=== PATIENT | female | born 1950 | race Caucasian/White ===

== ENCOUNTER 2018-05-29 19:59 | Emergency (ER) | payer OTHER, BC ==
[2018-05-29] MEDS: HYDROCODONE/APAP (5/325) TAB PO (21:28)
[2018-05-29 22:42] LABS: ADD MAN DIFF? NO
[2018-05-29 22:46] LABS: BASOPHILS % 0.2 % (0.0-2.0); EOSINOPHILS # 0.1 10^3/ul (0.0-0.5); HEMATOCRIT 35.1 % (37.0-47.0); HEMOGLOBIN 11.7 g/dl (12.0-16.0); LYMPHOCYTES # 1.4 10^3/ul (0.8-2.9); LYMPHOCYTES % 23.2 % (15.0-51.0); MEAN CORPUSCULAR HGB CONC 33.3 g/dl (32.0-37.0); MEAN CORPUSCULAR VOLUME 95.9 fl (82.0-101.0); MEAN PLATELET VOLUME 9.7 fl (7.4-10.4); MONOCYTE # 0.5 10^3/ul (0.3-0.9); MONOCYTES % 8.9 % (0.0-11.0); NEUTROPHILS % 66.4 % (39.0-77.0); PLATELET COUNT 171 10^3/UL (140-415); RED BLOOD COUNT 3.66 10^6/ul (4.20-5.40)
[2018-05-29 23:23] LABS: ALANINE AMINOTRANSFERASE 38 IU/L (13-69); ALBUMIN 4.1 g/dl (3.3-4.9); ALBUMIN/GLOBULIN RATIO 1.41; ALKALINE PHOSPHATASE 137 IU/L (42-121); ANION GAP 15 (8-16); ASPARTATE AMINO TRANSFERASE 37 IU/L (15-46); BLOOD UREA NITROGEN 23 mg/dl (7-20); CALCIUM 9.6 mg/dl (8.4-10.2); CARBON DIOXIDE 24 mmol/L (21-31); CHLORIDE 108 mmol/L (97-110); CREATININE 0.86 mg/dl (0.44-1.00); GLUCOSE 112 mg/dl (70-220); POTASSIUM 4.4 mmol/L (3.5-5.1); SODIUM 143 mmol/L (135-144)
[2018-05-29 23:39] LABS: ADD UMIC YES; UR ASCORBIC ACID NEGATIVE (NEGATIVE); UR BACTERIA FEW /HPF (NONE SEEN); UR BILIRUBIN (Dip) NEGATIVE (NEGATIVE); UR BLOOD (Dip) NEGATIVE (NEGATIVE); UR CALCIUM OXALATE CRYSTAL MANY /HPF (NONE SEEN); UR CLARITY CLOUDY (CLEAR); UR COLOR YELLOW (YELLOW); UR GLUCOSE (Dip) NEGATIVE (NEGATIVE); UR KETONES (Dip) NEGATIVE (NEGATIVE); UR LEUKOCYTE ESTERASE (Dip) 1+ Leu/ul (NEGATIVE); UR MUCUS FEW /HPF (NONE SEEN); UR NITRITE (Dip) NEGATIVE (NEGATIVE); UR RBC 7 /HPF (0-5); UR SPECIFIC GRAVITY (Dip) 1.031 (1.003-1.030); UR SQUAMOUS EPITHELIAL CELL MODERATE /HPF (FEW); UR TOTAL PROTEIN (Dip) NEGATIVE (NEGATIVE); UR UROBILINOGEN (Dip) 1+ mg/dL (NEGATIVE); UR WBC 19 /HPF (0-5)
[2018-05-30] MEDS: KETOROLAC 30 MG INJ IM
== END 2018-05-30 00:38 | disposition home or self-care (01) ==
LOC: FTE 05-30 00:38
DX: M24.551 Contracture, right hip (principal); N30.01 Acute cystitis with hematuria; R40.2412 Glasgow coma scale score 13-15, at arrival to emergency department; I10 Essential (primary) hypertension
CPT/HCPCS: 72170; 73502; 73510; 80053; 81001; 85025; 96372; 99284-25

== ENCOUNTER 2018-06-04 20:21 | Inpatient (IN) | payer OTHER ==
[2018-06-04] MEDS: HYDROCODONE/APAP (10/325) TAB PO (20:52)
[2018-06-04 21:27] LABS: ADD MAN DIFF? NO
[2018-06-04 21:29] LABS: WHITE BLOOD COUNT 6.4 10^3/ul (4.8-10.8)
[2018-06-04 21:29] LABS: BASOPHILS % 0.3 % (0.0-2.0); EOSINOPHILS # 0.1 10^3/ul (0.0-0.5); EOSINOPHILS % 1.7 % (0.0-7.0); HEMOGLOBIN 12.8 g/dl (12.0-16.0); LYMPHOCYTES # 1.7 10^3/ul (0.8-2.9); LYMPHOCYTES % 26.8 % (15.0-51.0); MEAN CORPUSCULAR HGB CONC 32.8 g/dl (32.0-37.0); MEAN CORPUSCULAR VOLUME 97.5 fl (82.0-101.0); MEAN PLATELET VOLUME 9.2 fl (7.4-10.4); MONOCYTE # 0.6 10^3/ul (0.3-0.9); MONOCYTES % 8.7 % (0.0-11.0); NEUTROPHILS % 62.2 % (39.0-77.0); PLATELET COUNT 193 10^3/UL (140-415); RED CELL DISTRIBUTION WIDTH 12.9 % (11.5-14.5)
[2018-06-04 21:52] LABS: ALANINE AMINOTRANSFERASE 36 IU/L (13-69); ALBUMIN 4.2 g/dl (3.3-4.9); ALKALINE PHOSPHATASE 169 IU/L (42-121); ANION GAP 14 (8-16); ASPARTATE AMINO TRANSFERASE 38 IU/L (15-46); BILIRUBIN,INDIRECT 0.7 mg/dl (0-1.1); BILIRUBIN,TOTAL 0.7 mg/dl (0.2-1.3); BLOOD UREA NITROGEN 26 mg/dl (7-20); CALCIUM 9.5 mg/dl (8.4-10.2); CARBON DIOXIDE 24 mmol/L (21-31); CHLORIDE 111 mmol/L (97-110); CREATININE 0.88 mg/dl (0.44-1.00); GLUCOSE 98 mg/dl (70-220); POTASSIUM 4.2 mmol/L (3.5-5.1); SODIUM 145 mmol/L (135-144); TOTAL PROTEIN 7.7 g/dl (6.1-8.1)
[2018-06-04 22:35] LABS: ERYTHROCYTE SEDIMENTATION RATE 30 mm/Hr (0-30)
[2018-06-04] MEDS: morphine 4 MG/ML VIAL IV (23:35)
[2018-06-04] MEDS: ONDANSETRON 4 MG INJ IV (23:35)
[2018-06-04] MEDS: SOD CHLORIDE 0.9% 1,000 ML IV (23:36)
[2018-06-05 00:26] LABS: INR 1.03; PROTIME 13.6 Sec (11.9-14.9); PT RATIO 1.1
[2018-06-05 00:27] LABS: PARTIAL THROMBOPLASTIN TIME 26.1 Sec (25.0-35.0)
[2018-06-05] MEDS: HYDROmorphONE 0.5 MG/0.5 ML SYG IV (00:38)
[2018-06-05 03:00] LABS: ADD UMIC YES; UR ASCORBIC ACID NEGATIVE (NEGATIVE); UR BILIRUBIN (Dip) 1+ mg/dL (NEGATIVE); UR BLOOD (Dip) 1+ mg/dL (NEGATIVE); UR CLARITY CLEAR (CLEAR); UR COLOR YELLOW (YELLOW); UR GLUCOSE (Dip) NEGATIVE (NEGATIVE); UR KETONES (Dip) NEGATIVE (NEGATIVE); UR LEUKOCYTE ESTERASE (Dip) NEGATIVE Leu/ul (NEGATIVE); UR NITRITE (Dip) NEGATIVE (NEGATIVE); UR RBC 7 /HPF (0-5); UR SPECIFIC GRAVITY (Dip) 1.034 (1.003-1.030); UR SQUAMOUS EPITHELIAL CELL FEW /HPF (FEW); UR TOTAL PROTEIN (Dip) NEGATIVE (NEGATIVE); UR UROBILINOGEN (Dip) 2+ mg/dL (NEGATIVE); UR WBC 0 /HPF (0-5)
[2018-06-05] MEDS ORDERED: ALBUTEROL/IPRATROPIUM (NEB) 3 ML AMP HHN (03:00)
[2018-06-05] MEDS ORDERED: ONDANSETRON 4 MG INJ IV (03:00)
[2018-06-05] MEDS ORDERED: NACL 0.9% 3 ML SYG IV (03:00)
[2018-06-05] MEDS ORDERED: ACETAMINOPHEN 325 MG TAB PO (03:00)
[2018-06-05 05:02] LABS: ADD MAN DIFF? NO
[2018-06-05 05:06] LABS: BASOPHILS % 0.3 % (0.0-2.0); EOSINOPHILS # 0.1 10^3/ul (0.0-0.5); EOSINOPHILS % 1.5 % (0.0-7.0); HEMATOCRIT 35.6 % (37.0-47.0); HEMOGLOBIN 11.7 g/dl (12.0-16.0); LYMPHOCYTES # 1.1 10^3/ul (0.8-2.9); LYMPHOCYTES % 18.9 % (15.0-51.0); MEAN CORPUSCULAR HEMOGLOBIN 32.1 pg (29.0-33.0); MEAN CORPUSCULAR HGB CONC 32.9 g/dl (32.0-37.0); MEAN CORPUSCULAR VOLUME 97.8 fl (82.0-101.0); MEAN PLATELET VOLUME 9.7 fl (7.4-10.4); MONOCYTE # 0.6 10^3/ul (0.3-0.9); MONOCYTES % 9.4 % (0.0-11.0); NEUTROPHIL # 4.1 10^3/ul (1.6-7.5); NEUTROPHILS % 69.6 % (39.0-77.0); PLATELET COUNT 155 10^3/UL (140-415); RED BLOOD COUNT 3.64 10^6/ul (4.20-5.40); RED CELL DISTRIBUTION WIDTH 13.1 % (11.5-14.5)
[2018-06-05 05:06] LABS: WHITE BLOOD COUNT 5.9 10^3/ul (4.8-10.8)
[2018-06-05 05:38] LABS: ALANINE AMINOTRANSFERASE 58 IU/L (13-69); ALBUMIN 3.7 g/dl (3.3-4.9); ALBUMIN/GLOBULIN RATIO 1.37; ALKALINE PHOSPHATASE 206 IU/L (42-121); ANION GAP 13 (8-16); ASPARTATE AMINO TRANSFERASE 111 IU/L (15-46); BILIRUBIN,INDIRECT 0.9 mg/dl (0-1.1); BILIRUBIN,TOTAL 0.9 mg/dl (0.2-1.3); BLOOD UREA NITROGEN 26 mg/dl (7-20); CALCIUM 9.3 mg/dl (8.4-10.2); CARBON DIOXIDE 27 mmol/L (21-31); CHLORIDE 108 mmol/L (97-110); CREATININE 0.82 mg/dl (0.44-1.00); GLUCOSE 126 mg/dl (70-220); POTASSIUM 4.1 mmol/L (3.5-5.1); SODIUM 144 mmol/L (135-144); TOTAL PROTEIN 6.4 g/dl (6.1-8.1)
[2018-06-05] MEDS: HYDROCODONE/APAP (5/325) TAB PO (06:10)
[2018-06-05] MEDS ORDERED: SUGAMMADEX SODIUM 200 MG/2 ML VIAL IV (07:36)
[2018-06-05] MEDS ORDERED: LABETALOL HCL 20MG INJ (07:36)
[2018-06-05] MEDS ORDERED: ONDANSETRON 4 MG INJ (07:36)
[2018-06-05] MEDS ORDERED: CEFAZOLIN 1 GM INJ (07:36)
[2018-06-05] MEDS ORDERED: ACETAMINOPHEN 1000MG/100ML IV 100 ML (07:36)
[2018-06-05] MEDS ORDERED: PROPOFOL 20 ML (07:36)
[2018-06-05] MEDS ORDERED: DEXAMETHASONE 4 MG/ML 1 ML INJ (07:36)
[2018-06-05] MEDS ORDERED: ROCURONIUM 50 MG INJ (07:36)
[2018-06-05] MEDS ORDERED: PHENYLephrine (100 MCG/ML) 5ML SYG (07:36)
[2018-06-05] MEDS ORDERED: morphine 10 MG INJ (07:36)
[2018-06-05] MEDS: HEPARIN 5,000 UNIT/0.5 ML VIAL SC ×2 (08:40→21:43)
[2018-06-05] MEDS: morphine 2 MG INJ IV ×2 (11:19→15:58)
[2018-06-05] MEDS ORDERED: HYDROCODONE/APAP (5/325) TAB PO ×2 (13:00)
[2018-06-05] MEDS: PANTOPRAZOLE (EC) 40 MG TAB PO (19:04)
[2018-06-05] MEDS: morphine LIQ (10 MG/5 ML) CUP PO ×2 (19:47→23:02)
[2018-06-05] MEDS ORDERED: VITAMIN A & D 5 GM OINT PACKET TOP (21:45)
[2018-06-05] MEDS: SOD CHLORIDE 0.9% 1,000 ML IV ×2 (22:30→22:45)
[2018-06-06] MEDS: CALCIUM CARBONATE 500 MG CHEW TAB PO (02:00)
[2018-06-06] MEDS: morphine LIQ (10 MG/5 ML) CUP PO ×5 (02:37→22:59)
[2018-06-06] MEDS: PANTOPRAZOLE (EC) 40 MG TAB PO (05:19)
[2018-06-06] MEDS: SOD CHLORIDE 0.9% 1,000 ML IV (05:23)
[2018-06-06 05:46] LABS: ADD MAN DIFF? NO
[2018-06-06 06:06] LABS: BASOPHILS % 0.5 % (0.0-2.0); EOSINOPHILS # 0.1 10^3/ul (0.0-0.5); EOSINOPHILS % 2.1 % (0.0-7.0); HEMATOCRIT 35.1 % (37.0-47.0); HEMOGLOBIN 11.5 g/dl (12.0-16.0); LYMPHOCYTES # 1.1 10^3/ul (0.8-2.9); LYMPHOCYTES % 25.2 % (15.0-51.0); MEAN CORPUSCULAR HEMOGLOBIN 31.9 pg (29.0-33.0); MEAN CORPUSCULAR HGB CONC 32.8 g/dl (32.0-37.0); MEAN CORPUSCULAR VOLUME 97.5 fl (82.0-101.0); MONOCYTE # 0.4 10^3/ul (0.3-0.9); MONOCYTES % 8.6 % (0.0-11.0); NEUTROPHIL # 2.7 10^3/ul (1.6-7.5); NEUTROPHILS % 63.4 % (39.0-77.0); PLATELET COUNT 152 10^3/UL (140-415); RED CELL DISTRIBUTION WIDTH 13.1 % (11.5-14.5)
[2018-06-06 06:06] LABS: WHITE BLOOD COUNT 4.3 10^3/ul (4.8-10.8)
[2018-06-06] MEDS: AL HYDROX/MG HYDROX/SIMETH 30 ML CUP PO (06:19)
[2018-06-06 06:50] LABS: ANION GAP 9 (8-16); BLOOD UREA NITROGEN 21 mg/dl (7-20); CALCIUM 8.9 mg/dl (8.4-10.2); CARBON DIOXIDE 24 mmol/L (21-31); CHLORIDE 114 mmol/L (97-110); CREATININE 0.91 mg/dl (0.44-1.00); GLUCOSE 97 mg/dl (70-220); MAGNESIUM 1.9 mg/dl (1.7-2.5); POTASSIUM 4.4 mmol/L (3.5-5.1); SODIUM 143 mmol/L (135-144)
[2018-06-06] MEDS: HEPARIN 5,000 UNIT/0.5 ML VIAL SC ×2 (09:33→21:50)
[2018-06-07] MEDS: HALOPERIDOL 5 MG INJ IM (01:00)
[2018-06-07] MEDS: SOD CHLORIDE 0.9% 1,000 ML IV ×2 (05:07→18:50)
[2018-06-07] MEDS: morphine 2 MG INJ IV ×3 (05:07→23:07)
[2018-06-07] MEDS: PANTOPRAZOLE (EC) 40 MG TAB PO (05:56)
[2018-06-07] MEDS: HEPARIN 5,000 UNIT/0.5 ML VIAL SC (09:00)
[2018-06-07] MEDS ORDERED: MEPERIDINE 25 MG INJ IV (13:30)
[2018-06-07] MEDS ORDERED: MIDAZOLAM 1 MG/ML 2 ML INJ IV (13:30)
[2018-06-07] MEDS ORDERED: HYDROmorphONE 1 MG/5 ML IV SYRINGE IV ×3 (13:30)
[2018-06-07] MEDS ORDERED: FENTAnyl 50 MCG/ML VIAL IV ×2 (13:30)
[2018-06-07] MEDS ORDERED: ONDANSETRON 4 MG INJ IV (13:30)
[2018-06-07] MEDS ORDERED: DIPHENHYDRAMINE 50 MG INJ IV (13:30)
[2018-06-07] MEDS ORDERED: LABETALOL HCL 20MG INJ IV (13:30)
[2018-06-07] MEDS ORDERED: OXYCODONE/ACETAMINOPHEN (5/325) TAB PO ×2 (13:30)
[2018-06-07] MEDS ORDERED: METOCLOPRAMIDE 10 MG INJ IV (13:30)
[2018-06-07] MEDS ORDERED: hydrALAzine 20 MG INJ IV (13:30)
[2018-06-07] MEDS ORDERED: EPHEDrine SULFATE 50 MG/5 ML SYG IV (13:30)
[2018-06-07] MEDS ORDERED: ALBUTEROL 0.083% (NEB) 2.5 MG/3 ML AMP HHN (13:30)
[2018-06-07] MEDS: POLYMYXIN/BACITRACIN 1L IRRIG IRR ×2 (16:20)
[2018-06-07] MEDS: FENTAnyl 50 MCG/ML VIAL IV ×2 (16:52→16:59)
[2018-06-07] MEDS: KETOROLAC 30 MG INJ IV (16:53)
[2018-06-07] MEDS: MIDAZOLAM 1 MG/ML 2 ML INJ IV (16:53)
[2018-06-07] MEDS ORDERED: CEFAZOLIN 1 GM/50 ML (PMX) 50 ML IVPB (17:00)
[2018-06-07 17:24] LABS: ADD MAN DIFF? NO
[2018-06-07 17:25] LABS: BASOPHILS % 0.2 % (0.0-2.0); EOSINOPHILS % 0.3 % (0.0-7.0); HEMATOCRIT 38.8 % (37.0-47.0); HEMOGLOBIN 12.7 g/dl (12.0-16.0); LYMPHOCYTES # 0.9 10^3/ul (0.8-2.9); LYMPHOCYTES % 7.7 % (15.0-51.0); MEAN CORPUSCULAR HEMOGLOBIN 32.2 pg (29.0-33.0); MEAN CORPUSCULAR HGB CONC 32.7 g/dl (32.0-37.0); MEAN CORPUSCULAR VOLUME 98.5 fl (82.0-101.0); MEAN PLATELET VOLUME 9.4 fl (7.4-10.4); MONOCYTE # 0.4 10^3/ul (0.3-0.9); MONOCYTES % 3.7 % (0.0-11.0); NEUTROPHIL # 9.8 10^3/ul (1.6-7.5); NEUTROPHILS % 87.7 % (39.0-77.0); PLATELET COUNT 180 10^3/UL (140-415); RED BLOOD COUNT 3.94 10^6/ul (4.20-5.40)
[2018-06-07 17:25] LABS: WHITE BLOOD COUNT 11.2 10^3/ul (4.8-10.8)
[2018-06-07 17:54] LABS: ANION GAP 11 (8-16); BLOOD UREA NITROGEN 15 mg/dl (7-20); CARBON DIOXIDE 21 mmol/L (21-31); CHLORIDE 112 mmol/L (97-110); CREATININE 0.77 mg/dl (0.44-1.00); GLUCOSE 108 mg/dl (70-220); POTASSIUM 4.3 mmol/L (3.5-5.1); SODIUM 140 mmol/L (135-144)
[2018-06-07] MEDS: CEFAZOLIN 1 GM/50 ML (PMX) 50 ML IVPB (21:57)
[2018-06-08] MEDS: morphine 2 MG INJ IV ×6 (02:48→22:06)
[2018-06-08] MEDS: SOD CHLORIDE 0.9% 1,000 ML IV ×3 (05:10→23:27)
[2018-06-08] MEDS: CEFAZOLIN 1 GM/50 ML (PMX) 50 ML IVPB ×2 (05:43→13:05)
[2018-06-08] MEDS: PANTOPRAZOLE (EC) 40 MG TAB PO (05:44)
[2018-06-08 06:10] LABS: ADD MAN DIFF? NO
[2018-06-08 06:21] LABS: WHITE BLOOD COUNT 8.8 10^3/ul (4.8-10.8)
[2018-06-08 06:21] LABS: BASOPHILS % 0.1 % (0.0-2.0); HEMATOCRIT 30.2 % (37.0-47.0); HEMOGLOBIN 9.6 g/dl (12.0-16.0); LYMPHOCYTES # 0.6 10^3/ul (0.8-2.9); LYMPHOCYTES % 6.9 % (15.0-51.0); MEAN CORPUSCULAR HEMOGLOBIN 31.2 pg (29.0-33.0); MEAN CORPUSCULAR HGB CONC 31.8 g/dl (32.0-37.0); MEAN CORPUSCULAR VOLUME 98.1 fl (82.0-101.0); MEAN PLATELET VOLUME 10.2 fl (7.4-10.4); MONOCYTE # 0.9 10^3/ul (0.3-0.9); MONOCYTES % 9.7 % (0.0-11.0); NEUTROPHIL # 7.3 10^3/ul (1.6-7.5); PLATELET COUNT 168 10^3/UL (140-415); RED BLOOD COUNT 3.08 10^6/ul (4.20-5.40); RED CELL DISTRIBUTION WIDTH 13.2 % (11.5-14.5)
[2018-06-08 07:07] LABS: ANION GAP 14 (8-16); BLOOD UREA NITROGEN 19 mg/dl (7-20); CALCIUM 8.4 mg/dl (8.4-10.2); CARBON DIOXIDE 22 mmol/L (21-31); CHLORIDE 110 mmol/L (97-110); CREATININE 0.78 mg/dl (0.44-1.00); GLUCOSE 131 mg/dl (70-220); POTASSIUM 4.2 mmol/L (3.5-5.1); SODIUM 142 mmol/L (135-144)
[2018-06-08] MEDS: HYDROCODONE/APAP (5/325) TAB PO ×2 (09:14→20:52)
[2018-06-08] MEDS: ENOXAPARIN 40 MG/0.4 ML SYG SC (09:21)
[2018-06-08] MEDS: LORAZEPAM 2 MG INJ IV (15:06)
[2018-06-09] MEDS: morphine 2 MG INJ IV ×4 (03:19→18:26)
[2018-06-09 05:47] LABS: ADD MAN DIFF? NO
[2018-06-09] MEDS: HYDROCODONE/APAP (5/325) TAB PO ×3 (05:52→21:04)
[2018-06-09 05:53] LABS: BASOPHILS % 0.3 % (0.0-2.0); EOSINOPHILS # 0.1 10^3/ul (0.0-0.5); EOSINOPHILS % 1.6 % (0.0-7.0); HEMATOCRIT 26.6 % (37.0-47.0); HEMOGLOBIN 8.6 g/dl (12.0-16.0); LYMPHOCYTES # 0.9 10^3/ul (0.8-2.9); LYMPHOCYTES % 11.3 % (15.0-51.0); MEAN CORPUSCULAR HEMOGLOBIN 31.5 pg (29.0-33.0); MEAN CORPUSCULAR HGB CONC 32.3 g/dl (32.0-37.0); MEAN CORPUSCULAR VOLUME 97.4 fl (82.0-101.0); MEAN PLATELET VOLUME 9.8 fl (7.4-10.4); MONOCYTE # 1.1 10^3/ul (0.3-0.9); MONOCYTES % 13.2 % (0.0-11.0); NEUTROPHIL # 5.8 10^3/ul (1.6-7.5); NEUTROPHILS % 72.8 % (39.0-77.0); PLATELET COUNT 181 10^3/UL (140-415); RED BLOOD COUNT 2.73 10^6/ul (4.20-5.40); RED CELL DISTRIBUTION WIDTH 13.3 % (11.5-14.5)
[2018-06-09] MEDS: PANTOPRAZOLE (EC) 40 MG TAB PO (06:02)
[2018-06-09 06:14] LABS: BLOOD UREA NITROGEN 14 mg/dl (7-20); CALCIUM 8.4 mg/dl (8.4-10.2); CARBON DIOXIDE 22 mmol/L (21-31); CHLORIDE 110 mmol/L (97-110); CREATININE 0.71 mg/dl (0.44-1.00); GLUCOSE 107 mg/dl (70-220); SODIUM 138 mmol/L (135-144)
[2018-06-09 06:49] LABS: ANION GAP 10 (8-16); POTASSIUM 4.3 mmol/L (3.5-5.1)
[2018-06-09] MEDS: ENOXAPARIN 40 MG/0.4 ML SYG SC (09:11)
[2018-06-09] MEDS: SOD CHLORIDE 0.9% 1,000 ML IV (13:18)
== END 2018-06-09 21:10 | DRG 470 ==
LOC: FTE 20:21 → MS1 06-05 00:23
PROC: 0SRR0JZ Replacement of Right Hip Joint, Femoral Surface with Synthetic Substitute, Open Approach (ICD-10-PCS; principal; 2018-06-07 12:00)
DX: S72.011A Unspecified intracapsular fracture of right femur, initial encounter for closed fracture (principal); I10 Essential (primary) hypertension; E66.01 Morbid (severe) obesity due to excess calories; F17.210 Nicotine dependence, cigarettes, uncomplicated; Z98.84 Bariatric surgery status; W10.9XXA Fall (on) (from) unspecified stairs and steps, initial encounter; Y92.009 Unspecified place in unspecified non-institutional (private) residence as the place of occurrence of the external cause; Z68.37 Body mass index [BMI] 37.0-37.9, adult
CPT/HCPCS: 71045; 72192; 73500; 80048; 80053; 81001; 83735; 84100; 84484; 85025; 85610; 85651; 85730; 86140; 87086; 88304; 88311; 93005; 96374; 96375; 97110; 97163; 97530; 99285-25

== ENCOUNTER 2018-07-05 19:56 | Inpatient (IN) | payer OTHER ==
[2018-07-05] MEDS: morphine 4 MG/ML VIAL IV (20:31)
[2018-07-05] MEDS: SOD CHLORIDE 0.9% 500 ML IV (20:38)
[2018-07-05 20:40] LABS: ADD MAN DIFF? NO
[2018-07-05 20:42] LABS: WHITE BLOOD COUNT 7.8 10^3/ul (4.8-10.8)
[2018-07-05 20:42] LABS: BASOPHILS % 0.4 % (0.0-2.0); EOSINOPHILS # 0.5 10^3/ul (0.0-0.5); EOSINOPHILS % 6.8 % (0.0-7.0); HEMATOCRIT 32.3 % (37.0-47.0); HEMOGLOBIN 10.2 g/dl (12.0-16.0); LYMPHOCYTES # 1.6 10^3/ul (0.8-2.9); LYMPHOCYTES % 20.1 % (15.0-51.0); MEAN CORPUSCULAR HEMOGLOBIN 31.5 pg (29.0-33.0); MEAN CORPUSCULAR HGB CONC 31.6 g/dl (32.0-37.0); MEAN CORPUSCULAR VOLUME 99.7 fl (82.0-101.0); MEAN PLATELET VOLUME 9.3 fl (7.4-10.4); MONOCYTE # 0.7 10^3/ul (0.3-0.9); MONOCYTES % 9.3 % (0.0-11.0); NEUTROPHIL # 4.9 10^3/ul (1.6-7.5); NEUTROPHILS % 63.1 % (39.0-77.0); PLATELET COUNT 295 10^3/UL (140-415); RED BLOOD COUNT 3.24 10^6/ul (4.20-5.40); RED CELL DISTRIBUTION WIDTH 13.4 % (11.5-14.5)
[2018-07-05 20:59] LABS: ANION GAP 11 (8-16); BLOOD UREA NITROGEN 14 mg/dl (7-20); CALCIUM 9.7 mg/dl (8.4-10.2); CARBON DIOXIDE 27 mmol/L (21-31); CHLORIDE 105 mmol/L (97-110); CREATININE 0.67 mg/dl (0.44-1.00); GLUCOSE 104 mg/dl (70-220); POTASSIUM 4.1 mmol/L (3.5-5.1); SODIUM 139 mmol/L (135-144)
[2018-07-05] MEDS: HYDROmorphONE 2 MG/ML SYG IV (21:18)
[2018-07-06] MEDS: LACTATED RINGER'S 1,000 ML IV (00:09)
[2018-07-06] MEDS ORDERED: NACL 0.9% 3 ML SYG IV (01:30)
[2018-07-06] MEDS: SOD CHLORIDE 0.9% 1,000 ML IV (02:23)
[2018-07-06] MEDS: HYDROmorphONE 1 MG/ML SYG IV ×2 (02:26→10:27)
[2018-07-06 05:31] LABS: ADD MAN DIFF? NO
[2018-07-06 05:40] LABS: WHITE BLOOD COUNT 4.6 10^3/ul (4.8-10.8)
[2018-07-06 05:40] LABS: BASOPHILS % 0.4 % (0.0-2.0); EOSINOPHILS # 0.4 10^3/ul (0.0-0.5); EOSINOPHILS % 9.5 % (0.0-7.0); HEMATOCRIT 30.6 % (37.0-47.0); HEMOGLOBIN 9.5 g/dl (12.0-16.0); LYMPHOCYTES # 1.2 10^3/ul (0.8-2.9); LYMPHOCYTES % 25.5 % (15.0-51.0); MEAN CORPUSCULAR HEMOGLOBIN 31.7 pg (29.0-33.0); MEAN PLATELET VOLUME 9.2 fl (7.4-10.4); MONOCYTE # 0.5 10^3/ul (0.3-0.9); MONOCYTES % 9.7 % (0.0-11.0); NEUTROPHIL # 2.5 10^3/ul (1.6-7.5); NEUTROPHILS % 54.5 % (39.0-77.0); PLATELET COUNT 214 10^3/UL (140-415); RED CELL DISTRIBUTION WIDTH 13.5 % (11.5-14.5)
[2018-07-06 06:02] LABS: ALANINE AMINOTRANSFERASE 39 IU/L (13-69); ALBUMIN 2.9 g/dl (3.3-4.9); ALBUMIN/GLOBULIN RATIO 1.03; ALKALINE PHOSPHATASE 374 IU/L (42-121); ANION GAP 8 (8-16); ASPARTATE AMINO TRANSFERASE 79 IU/L (15-46); BILIRUBIN,INDIRECT 0.9 mg/dl (0-1.1); BILIRUBIN,TOTAL 0.9 mg/dl (0.2-1.3); BLOOD UREA NITROGEN 13 mg/dl (7-20); CALCIUM 8.7 mg/dl (8.4-10.2); CARBON DIOXIDE 28 mmol/L (21-31); CHLORIDE 108 mmol/L (97-110); CREATININE 0.61 mg/dl (0.44-1.00); GLUCOSE 94 mg/dl (70-220); POTASSIUM 3.5 mmol/L (3.5-5.1); SODIUM 140 mmol/L (135-144); TOTAL PROTEIN 5.7 g/dl (6.1-8.1)
[2018-07-06] MEDS: PANTOPRAZOLE (EC) 40 MG TAB PO (06:19)
[2018-07-06] MEDS: MULTIVITAMINS THERAPEUTIC TAB PO (08:51)
[2018-07-06] MEDS: SERTRALINE 50 MG TAB PO (08:51)
[2018-07-06] MEDS: DIPHENHYDRAMINE 50 MG INJ IV (12:07)
[2018-07-06] MEDS: DEXTROSE 5%-0.45% NACL 1,000 ML IV (13:26)
[2018-07-06] MEDS: morphine 2 MG INJ IV ×2 (15:51→20:14)
[2018-07-07] MEDS: DEXTROSE 5%-0.45% NACL 1,000 ML IV ×4 (00:19→22:52)
[2018-07-07] MEDS: morphine 2 MG INJ IV ×4 (00:21→14:39)
[2018-07-07 05:28] LABS: ADD MAN DIFF? NO
[2018-07-07 05:34] LABS: BASOPHILS % 0.1 % (0.0-2.0); EOSINOPHILS # 0.4 10^3/ul (0.0-0.5); EOSINOPHILS % 5.1 % (0.0-7.0); HEMATOCRIT 37.7 % (37.0-47.0); HEMOGLOBIN 11.6 g/dl (12.0-16.0); LYMPHOCYTES # 0.8 10^3/ul (0.8-2.9); LYMPHOCYTES % 9.7 % (15.0-51.0); MEAN CORPUSCULAR HEMOGLOBIN 31.3 pg (29.0-33.0); MEAN CORPUSCULAR HGB CONC 30.8 g/dl (32.0-37.0); MEAN CORPUSCULAR VOLUME 101.6 fl (82.0-101.0); MEAN PLATELET VOLUME 9.3 fl (7.4-10.4); MONOCYTE # 0.3 10^3/ul (0.3-0.9); NEUTROPHIL # 6.8 10^3/ul (1.6-7.5); NEUTROPHILS % 81.7 % (39.0-77.0); PLATELET COUNT 251 10^3/UL (140-415); RED BLOOD COUNT 3.71 10^6/ul (4.20-5.40); RED CELL DISTRIBUTION WIDTH 13.5 % (11.5-14.5)
[2018-07-07 05:34] LABS: WHITE BLOOD COUNT 8.4 10^3/ul (4.8-10.8)
[2018-07-07] MEDS: PANTOPRAZOLE (EC) 40 MG TAB PO (05:55)
[2018-07-07] MEDS: DIPHENHYDRAMINE 50 MG INJ IV ×3 (05:56→16:06)
[2018-07-07 06:01] LABS: ANION GAP 7 (8-16); BLOOD UREA NITROGEN 13 mg/dl (7-20); CALCIUM 7.9 mg/dl (8.4-10.2); CARBON DIOXIDE 24 mmol/L (21-31); CHLORIDE 109 mmol/L (97-110); CREATININE 0.68 mg/dl (0.44-1.00); GLUCOSE 113 mg/dl (70-220); MAGNESIUM 1.6 mg/dl (1.7-2.5); PHOSPHORUS 2.9 mg/dl (2.5-4.9); POTASSIUM 3.7 mmol/L (3.5-5.1); SODIUM 136 mmol/L (135-144)
[2018-07-07] MEDS: MULTIVITAMINS THERAPEUTIC TAB PO (09:40)
[2018-07-07] MEDS: ONDANSETRON 4 MG INJ IV (09:40)
[2018-07-07] MEDS: SERTRALINE 50 MG TAB PO (09:40)
[2018-07-07] MEDS: morphine LIQ (10 MG/5 ML) CUP PO (20:09)
[2018-07-08] MEDS: DIPHENHYDRAMINE 50 MG INJ IV ×4 (01:51→20:35)
[2018-07-08] MEDS: morphine LIQ (10 MG/5 ML) CUP PO ×4 (02:25→18:50)
[2018-07-08 05:52] LABS: ADD MAN DIFF? NO
[2018-07-08 06:01] LABS: WHITE BLOOD COUNT 10.8 10^3/ul (4.8-10.8)
[2018-07-08 06:01] LABS: BASOPHILS % 0.1 % (0.0-2.0); EOSINOPHILS # 0.9 10^3/ul (0.0-0.5); EOSINOPHILS % 8.7 % (0.0-7.0); HEMATOCRIT 34.5 % (37.0-47.0); HEMOGLOBIN 10.9 g/dl (12.0-16.0); LYMPHOCYTES # 0.7 10^3/ul (0.8-2.9); LYMPHOCYTES % 6.3 % (15.0-51.0); MEAN CORPUSCULAR HEMOGLOBIN 31.3 pg (29.0-33.0); MEAN CORPUSCULAR HGB CONC 31.6 g/dl (32.0-37.0); MEAN CORPUSCULAR VOLUME 99.1 fl (82.0-101.0); MEAN PLATELET VOLUME 9.7 fl (7.4-10.4); MONOCYTE # 0.6 10^3/ul (0.3-0.9); MONOCYTES % 5.1 % (0.0-11.0); NEUTROPHIL # 8.6 10^3/ul (1.6-7.5); NEUTROPHILS % 79.4 % (39.0-77.0); PLATELET COUNT 291 10^3/UL (140-415); RED BLOOD COUNT 3.48 10^6/ul (4.20-5.40); RED CELL DISTRIBUTION WIDTH 13.6 % (11.5-14.5)
[2018-07-08] MEDS: PANTOPRAZOLE (EC) 40 MG TAB PO (06:27)
[2018-07-08] MEDS: DEXTROSE 5%-0.45% NACL 1,000 ML IV ×4 (06:45→22:27)
[2018-07-08 07:00] LABS: ALBUMIN 2.3 g/dl (3.3-4.9); ANION GAP 8 (8-16); BLOOD UREA NITROGEN 11 mg/dl (7-20); CALCIUM 8.1 mg/dl (8.4-10.2); CARBON DIOXIDE 24 mmol/L (21-31); CHLORIDE 108 mmol/L (97-110); CREATININE 0.71 mg/dl (0.44-1.00); GLUCOSE 128 mg/dl (70-220); MAGNESIUM 1.5 mg/dl (1.7-2.5); PHOSPHORUS 2.7 mg/dl (2.5-4.9); POTASSIUM 3.4 mmol/L (3.5-5.1); SODIUM 137 mmol/L (135-144)
[2018-07-08] MEDS: MULTIVITAMINS THERAPEUTIC TAB PO (08:31)
[2018-07-08] MEDS: SERTRALINE 50 MG TAB PO (08:31)
[2018-07-08] MEDS: DOCUSATE SODIUM 100 MG CAP PO (08:35)
[2018-07-08] MEDS ORDERED: HYDROCODONE/APAP (5/325) TAB PO (12:00)
[2018-07-08] MEDS: HYDROCODONE/APAP (10/325) TAB PO ×2 (16:11→22:26)
[2018-07-09] MEDS: morphine LIQ (10 MG/5 ML) CUP PO (00:22)
[2018-07-09] MEDS: AL HYDROX/MG HYDROX/SIMETH 30 ML CUP PO (00:23)
[2018-07-09] MEDS ORDERED: DIPHENHYDRAMINE 50 MG INJ IM (00:30)
[2018-07-09] MEDS: PANTOPRAZOLE (EC) 40 MG TAB PO (04:56)
[2018-07-09] MEDS: HYDROCODONE/APAP (10/325) TAB PO ×3 (04:57→18:33)
[2018-07-09] MEDS: DIPHENHYDRAMINE 50 MG INJ IV ×4 (04:57→22:34)
[2018-07-09 05:27] LABS: ADD MAN DIFF? NO
[2018-07-09 05:35] LABS: BASOPHILS % 0.3 % (0.0-2.0); EOSINOPHILS # 0.9 10^3/ul (0.0-0.5); EOSINOPHILS % 15.3 % (0.0-7.0); HEMATOCRIT 34.1 % (37.0-47.0); HEMOGLOBIN 10.7 g/dl (12.0-16.0); LYMPHOCYTES # 0.9 10^3/ul (0.8-2.9); LYMPHOCYTES % 15.1 % (15.0-51.0); MEAN CORPUSCULAR HEMOGLOBIN 31.1 pg (29.0-33.0); MEAN CORPUSCULAR HGB CONC 31.4 g/dl (32.0-37.0); MEAN CORPUSCULAR VOLUME 99.1 fl (82.0-101.0); MEAN PLATELET VOLUME 9.4 fl (7.4-10.4); MONOCYTE # 0.5 10^3/ul (0.3-0.9); MONOCYTES % 7.9 % (0.0-11.0); NEUTROPHIL # 3.5 10^3/ul (1.6-7.5); NEUTROPHILS % 61.1 % (39.0-77.0); PLATELET COUNT 274 10^3/UL (140-415); RED BLOOD COUNT 3.44 10^6/ul (4.20-5.40); RED CELL DISTRIBUTION WIDTH 13.7 % (11.5-14.5)
[2018-07-09 05:35] LABS: WHITE BLOOD COUNT 5.8 10^3/ul (4.8-10.8)
[2018-07-09 06:18] LABS: ALBUMIN 2.6 g/dl (3.3-4.9); ANION GAP 10 (8-16); BLOOD UREA NITROGEN 8 mg/dl (7-20); CALCIUM 8.3 mg/dl (8.4-10.2); CARBON DIOXIDE 26 mmol/L (21-31); CHLORIDE 110 mmol/L (97-110); CREATININE 0.66 mg/dl (0.44-1.00); GLUCOSE 102 mg/dl (70-220); MAGNESIUM 1.6 mg/dl (1.7-2.5); PHOSPHORUS 3.1 mg/dl (2.5-4.9); POTASSIUM 3.5 mmol/L (3.5-5.1); SODIUM 142 mmol/L (135-144)
[2018-07-09] MEDS: SERTRALINE 50 MG TAB PO (08:51)
[2018-07-09] MEDS: MULTIVITAMINS THERAPEUTIC TAB PO (08:51)
[2018-07-09] MEDS: DEXTROSE 5%-0.45% NACL 1,000 ML IV ×4 (10:53→22:20)
[2018-07-10] MEDS: HYDROCODONE/APAP (10/325) TAB PO ×2 (00:36→06:20)
[2018-07-10] MEDS: morphine LIQ (10 MG/5 ML) CUP PO (03:34)
[2018-07-10 05:41] LABS: ADD MAN DIFF? NO
[2018-07-10 05:45] LABS: BASOPHILS % 0.3 % (0.0-2.0); EOSINOPHILS # 1.1 10^3/ul (0.0-0.5); EOSINOPHILS % 15.1 % (0.0-7.0); HEMATOCRIT 33.6 % (37.0-47.0); HEMOGLOBIN 10.5 g/dl (12.0-16.0); LYMPHOCYTES # 0.9 10^3/ul (0.8-2.9); LYMPHOCYTES % 12.6 % (15.0-51.0); MEAN CORPUSCULAR HGB CONC 31.3 g/dl (32.0-37.0); MEAN CORPUSCULAR VOLUME 99.1 fl (82.0-101.0); MEAN PLATELET VOLUME 9.4 fl (7.4-10.4); MONOCYTE # 0.4 10^3/ul (0.3-0.9); MONOCYTES % 5.7 % (0.0-11.0); NEUTROPHIL # 4.8 10^3/ul (1.6-7.5); NEUTROPHILS % 65.9 % (39.0-77.0); PLATELET COUNT 280 10^3/UL (140-415); RED BLOOD COUNT 3.39 10^6/ul (4.20-5.40)
[2018-07-10 05:45] LABS: WHITE BLOOD COUNT 7.3 10^3/ul (4.8-10.8)
[2018-07-10 06:04] LABS: ALBUMIN 2.4 g/dl (3.3-4.9); ANION GAP 9 (8-16); BLOOD UREA NITROGEN 8 mg/dl (7-20); CALCIUM 8.2 mg/dl (8.4-10.2); CARBON DIOXIDE 24 mmol/L (21-31); CHLORIDE 109 mmol/L (97-110); CREATININE 0.63 mg/dl (0.44-1.00); GLUCOSE 94 mg/dl (70-220); MAGNESIUM 1.5 mg/dl (1.7-2.5); POTASSIUM 3.5 mmol/L (3.5-5.1); SODIUM 138 mmol/L (135-144)
[2018-07-10] MEDS: DIPHENHYDRAMINE 50 MG INJ IV ×2 (06:19→16:57)
[2018-07-10] MEDS: PANTOPRAZOLE (EC) 40 MG TAB PO (06:19)
[2018-07-10] MEDS: DEXTROSE 5%-0.45% NACL 1,000 ML IV (06:20)
[2018-07-10] MEDS: BISACODYL (EC) 5 MG TAB PO (07:02)
[2018-07-10] MEDS ORDERED: VANCOMYCIN IV PER PHARMACY XX (08:30)
[2018-07-10] MEDS: PIPER-TAZO 3.375 GM IV (PMX) 100 ML IVPB (09:16)
[2018-07-10] MEDS: METHYLPREDNISOLONE 40 MG INJ IV (09:16)
[2018-07-10] MEDS: MULTIVITAMINS THERAPEUTIC TAB PO (09:17)
[2018-07-10] MEDS: SERTRALINE 50 MG TAB PO (09:17)
[2018-07-10] MEDS: VANCOMYCIN 2 GM in SOD CHLORIDE 0.9% 500 ML IVPB (10:28)
[2018-07-10] MEDS: OXYCODONE/ACETAMINOPHEN (10/325) TAB PO ×2 (10:33→14:43)
[2018-07-10] MEDS ORDERED: VITAMIN A & D 5 GM OINT PACKET TOP (15:23)
[2018-07-10] MEDS: CEFTRIAXONE 1 GM/50 ML (PMX) 50 ML IVPB (16:41)
[2018-07-10 16:58] LABS: LACTIC ACID 2.4 mmol/L (0.5-2.0)
[2018-07-10] MEDS: HYDROmorphONE 2 MG TAB PO (19:50)
[2018-07-10] MEDS: OXYCODONE/ACETAMINOPHEN (5/325) TAB PO (21:58)
[2018-07-10] MEDS: VANCOMYCIN 1 GM 250 ML IVPB (21:59)
[2018-07-10] MEDS ORDERED: VANCOMYCIN 750 MG in SOD CHLORIDE 0.9% 150 ML IVPB (22:00)
[2018-07-11] MEDS: DIPHENHYDRAMINE 50 MG INJ IV ×2 (01:15→21:58)
[2018-07-11] MEDS: OXYCODONE/ACETAMINOPHEN (5/325) TAB PO ×4 (02:08→21:58)
[2018-07-11 05:51] LABS: ADD MAN DIFF? NO
[2018-07-11 05:58] LABS: BASOPHILS % 0.1 % (0.0-2.0); EOSINOPHILS # 0.7 10^3/ul (0.0-0.5); EOSINOPHILS % 9.1 % (0.0-7.0); HEMATOCRIT 31.2 % (37.0-47.0); HEMOGLOBIN 9.9 g/dl (12.0-16.0); LYMPHOCYTES # 0.9 10^3/ul (0.8-2.9); LYMPHOCYTES % 12.6 % (15.0-51.0); MEAN CORPUSCULAR HEMOGLOBIN 31.6 pg (29.0-33.0); MEAN CORPUSCULAR HGB CONC 31.7 g/dl (32.0-37.0); MEAN CORPUSCULAR VOLUME 99.7 fl (82.0-101.0); MONOCYTE # 0.6 10^3/ul (0.3-0.9); NEUTROPHIL # 5.2 10^3/ul (1.6-7.5); NEUTROPHILS % 69.8 % (39.0-77.0); PLATELET COUNT 299 10^3/UL (140-415); RED BLOOD COUNT 3.13 10^6/ul (4.20-5.40); RED CELL DISTRIBUTION WIDTH 13.7 % (11.5-14.5)
[2018-07-11 05:58] LABS: WHITE BLOOD COUNT 7.5 10^3/ul (4.8-10.8)
[2018-07-11] MEDS: PANTOPRAZOLE (EC) 40 MG TAB PO (06:22)
[2018-07-11 06:50] LABS: ALBUMIN 2.7 g/dl (3.3-4.9); ANION GAP 10 (8-16); BLOOD UREA NITROGEN 10 mg/dl (7-20); CALCIUM 8.5 mg/dl (8.4-10.2); CARBON DIOXIDE 25 mmol/L (21-31); CHLORIDE 110 mmol/L (97-110); CREATININE 0.61 mg/dl (0.44-1.00); GLUCOSE 107 mg/dl (70-220); MAGNESIUM 1.7 mg/dl (1.7-2.5); PHOSPHORUS 2.9 mg/dl (2.5-4.9); POTASSIUM 3.7 mmol/L (3.5-5.1); SODIUM 141 mmol/L (135-144)
[2018-07-11] MEDS: SERTRALINE 50 MG TAB PO (11:33)
[2018-07-11] MEDS: MULTIVITAMINS THERAPEUTIC TAB PO (11:34)
[2018-07-11] MEDS: VANCOMYCIN 1 GM 250 ML IVPB ×2 (11:34→23:03)
[2018-07-11] MEDS: LORAZEPAM 2 MG INJ IV (11:50)
[2018-07-11] MEDS: AL HYDROX/MG HYDROX/SIMETH 30 ML CUP PO ×2 (11:50→17:12)
[2018-07-11] MEDS ORDERED: VITAMIN A & D 5 GM OINT PACKET TOP (11:56)
[2018-07-11] MEDS: HYDROmorphONE 2 MG TAB PO (15:16)
[2018-07-11] MEDS: HYDROmorphONE 1 MG/ML SYG IV (17:00)
[2018-07-11] MEDS: CEFTRIAXONE 1 GM/50 ML (PMX) 50 ML IVPB (17:13)
[2018-07-11 21:58] LABS: VANCOMYCIN,TROUGH 17.1 ug/ml (10.0-20.0)
[2018-07-12] MEDS: HYDROmorphONE 2 MG TAB PO ×4 (00:34→23:07)
[2018-07-12] MEDS: DIPHENHYDRAMINE 50 MG INJ IV ×3 (04:27→21:54)
[2018-07-12] MEDS: OXYCODONE/ACETAMINOPHEN (5/325) TAB PO ×2 (04:38→15:53)
[2018-07-12 05:24] LABS: ADD MAN DIFF? NO
[2018-07-12 05:26] LABS: WHITE BLOOD COUNT 7.1 10^3/ul (4.8-10.8)
[2018-07-12 05:26] LABS: BASOPHILS % 0.3 % (0.0-2.0); EOSINOPHILS # 1.4 10^3/ul (0.0-0.5); EOSINOPHILS % 19.1 % (0.0-7.0); HEMATOCRIT 31.4 % (37.0-47.0); HEMOGLOBIN 9.8 g/dl (12.0-16.0); IMMATURE GRANS #M 0.02 10^3/ul; IMMATURE GRANS % (M) 0.3 %; LYMPHOCYTES # 1.3 10^3/ul (0.8-2.9); LYMPHOCYTES % 18.7 % (15.0-51.0); MEAN CORPUSCULAR HEMOGLOBIN 30.9 pg (29.0-33.0); MEAN CORPUSCULAR HGB CONC 31.2 g/dl (32.0-37.0); MEAN CORPUSCULAR VOLUME 99.1 fl (82.0-101.0); MEAN PLATELET VOLUME 9.1 fl (7.4-10.4); MONOCYTE # 0.5 10^3/ul (0.3-0.9); MONOCYTES % 6.9 % (0.0-11.0); NEUTROPHIL # 3.9 10^3/ul (1.6-7.5); NEUTROPHILS % 54.7 % (39.0-77.0); PLATELET COUNT 276 10^3/UL (140-415); RED BLOOD COUNT 3.17 10^6/ul (4.20-5.40); RED CELL DISTRIBUTION WIDTH 13.9 % (11.5-14.5)
[2018-07-12 06:04] LABS: ALBUMIN 2.7 g/dl (3.3-4.9); ANION GAP 11 (8-16); BLOOD UREA NITROGEN 13 mg/dl (7-20); CALCIUM 8.3 mg/dl (8.4-10.2); CARBON DIOXIDE 27 mmol/L (21-31); CHLORIDE 110 mmol/L (97-110); CREATININE 0.81 mg/dl (0.44-1.00); GLUCOSE 92 mg/dl (70-220); MAGNESIUM 1.7 mg/dl (1.7-2.5); PHOSPHORUS 3.3 mg/dl (2.5-4.9); POTASSIUM 3.8 mmol/L (3.5-5.1); SODIUM 144 mmol/L (135-144)
[2018-07-12] MEDS: PANTOPRAZOLE (EC) 40 MG TAB PO (07:22)
[2018-07-12] MEDS: SERTRALINE 50 MG TAB PO (09:14)
[2018-07-12] MEDS: MULTIVITAMINS THERAPEUTIC TAB PO (09:14)
[2018-07-12] MEDS: VANCOMYCIN 750 MG in SOD CHLORIDE 0.9% 150 ML IVPB ×2 (12:19→22:50)
[2018-07-12] MEDS: HYDROmorphONE 0.5 MG/0.5 ML SYG IV (12:41)
[2018-07-12] MEDS ORDERED: HYDROmorphONE 1 MG/ML SYG IV (13:00)
[2018-07-12] MEDS: HEPARIN 5,000 UNIT/0.5 ML VIAL SC ×2 (14:25→21:49)
[2018-07-12] MEDS: CEFTRIAXONE 1 GM/50 ML (PMX) 50 ML IVPB (16:16)
[2018-07-13] MEDS: OXYCODONE/ACETAMINOPHEN (5/325) TAB PO ×4 (01:02→18:36)
[2018-07-13 05:09] LABS: ADD MAN DIFF? NO
[2018-07-13 05:16] LABS: HEMOGLOBIN 9.4 g/dl (12.0-16.0); RED BLOOD COUNT 2.95 10^6/ul (4.20-5.40)
[2018-07-13 05:17] LABS: BASOPHILS % 0.5 % (0.0-2.0); EOSINOPHILS # 1.3 10^3/ul (0.0-0.5); HEMATOCRIT 29.3 % (37.0-47.0); IMMATURE GRANS #M 0.02 10^3/ul; IMMATURE GRANS % (M) 0.3 %; LYMPHOCYTES # 1.6 10^3/ul (0.8-2.9); MEAN CORPUSCULAR HEMOGLOBIN 31.9 pg (29.0-33.0); MEAN CORPUSCULAR HGB CONC 32.1 g/dl (32.0-37.0); MEAN CORPUSCULAR VOLUME 99.3 fl (82.0-101.0); MONOCYTE # 0.6 10^3/ul (0.3-0.9); MONOCYTES % 9.2 % (0.0-11.0); NEUTROPHIL # 2.6 10^3/ul (1.6-7.5); PLATELET COUNT 270 10^3/UL (140-415); RED CELL DISTRIBUTION WIDTH 13.7 % (11.5-14.5)
[2018-07-13 05:26] LABS: ALBUMIN 2.7 g/dl (3.3-4.9); ANION GAP 8 (8-16); BLOOD UREA NITROGEN 13 mg/dl (7-20); CALCIUM 8.4 mg/dl (8.4-10.2); CARBON DIOXIDE 27 mmol/L (21-31); CHLORIDE 110 mmol/L (97-110); CREATININE 0.71 mg/dl (0.44-1.00); GLUCOSE 87 mg/dl (70-220); MAGNESIUM 1.7 mg/dl (1.7-2.5); PHOSPHORUS 3.8 mg/dl (2.5-4.9); POTASSIUM 3.8 mmol/L (3.5-5.1); SODIUM 141 mmol/L (135-144)
[2018-07-13] MEDS: PANTOPRAZOLE (EC) 40 MG TAB PO (06:24)
[2018-07-13] MEDS: HEPARIN 5,000 UNIT/0.5 ML VIAL SC ×3 (06:28→21:33)
[2018-07-13] MEDS: HYDROmorphONE 2 MG TAB PO ×2 (06:57→10:59)
[2018-07-13] MEDS: SERTRALINE 50 MG TAB PO (09:27)
[2018-07-13] MEDS: MULTIVITAMINS THERAPEUTIC TAB PO (09:27)
[2018-07-13] MEDS: GABAPENTIN 300 MG CAP PO ×3 (10:58→21:30)
[2018-07-13] MEDS: VANCOMYCIN 750 MG in SOD CHLORIDE 0.9% 150 ML IVPB (10:59)
[2018-07-13] MEDS: DIPHENHYDRAMINE 50 MG INJ IV (14:16)
[2018-07-13] MEDS: HYDROmorphONE 1 MG/ML SYG IV (16:41)
[2018-07-13] MEDS: CEFTRIAXONE 1 GM/50 ML (PMX) 50 ML IVPB (16:42)
[2018-07-13 23:35] LABS: VANCOMYCIN,TROUGH 16.1 ug/ml (10.0-20.0)
[2018-07-14] MEDS: VANCOMYCIN 750 MG in SOD CHLORIDE 0.9% 150 ML IVPB ×2 (00:15→10:29)
[2018-07-14] MEDS: PANTOPRAZOLE (EC) 40 MG TAB PO (05:39)
[2018-07-14] MEDS: HEPARIN 5,000 UNIT/0.5 ML VIAL SC ×3 (05:43→21:49)
[2018-07-14 05:51] LABS: ADD MAN DIFF? NO
[2018-07-14 06:06] LABS: BASOPHILS % 0.4 % (0.0-2.0); EOSINOPHILS # 0.9 10^3/ul (0.0-0.5); EOSINOPHILS % 17.7 % (0.0-7.0); HEMATOCRIT 30.1 % (37.0-47.0); HEMOGLOBIN 9.5 g/dl (12.0-16.0); IMMATURE GRANS #M 0.02 10^3/ul; IMMATURE GRANS % (M) 0.4 %; LYMPHOCYTES # 1.2 10^3/ul (0.8-2.9); LYMPHOCYTES % 23.8 % (15.0-51.0); MEAN CORPUSCULAR HEMOGLOBIN 31.6 pg (29.0-33.0); MEAN CORPUSCULAR HGB CONC 31.6 g/dl (32.0-37.0); MEAN PLATELET VOLUME 9.6 fl (7.4-10.4); MONOCYTE # 0.5 10^3/ul (0.3-0.9); NEUTROPHIL # 2.5 10^3/ul (1.6-7.5); NEUTROPHILS % 48.7 % (39.0-77.0); PLATELET COUNT 270 10^3/UL (140-415); RED BLOOD COUNT 3.01 10^6/ul (4.20-5.40); RED CELL DISTRIBUTION WIDTH 13.9 % (11.5-14.5)
[2018-07-14 06:06] LABS: WHITE BLOOD COUNT 5.1 10^3/ul (4.8-10.8)
[2018-07-14 06:38] LABS: ALBUMIN 2.4 g/dl (3.3-4.9); ANION GAP 10 (8-16); BLOOD UREA NITROGEN 14 mg/dl (7-20); CALCIUM 8.4 mg/dl (8.4-10.2); CARBON DIOXIDE 28 mmol/L (21-31); CHLORIDE 108 mmol/L (97-110); CREATININE 0.77 mg/dl (0.44-1.00); GLUCOSE 94 mg/dl (70-220); MAGNESIUM 1.7 mg/dl (1.7-2.5); PHOSPHORUS 4.2 mg/dl (2.5-4.9); POTASSIUM 3.8 mmol/L (3.5-5.1); SODIUM 142 mmol/L (135-144)
[2018-07-14] MEDS: MULTIVITAMINS THERAPEUTIC TAB PO (09:07)
[2018-07-14] MEDS: GABAPENTIN 300 MG CAP PO ×3 (09:07→21:47)
[2018-07-14] MEDS: SERTRALINE 50 MG TAB PO (09:07)
[2018-07-14] MEDS: HYDROmorphONE 2 MG TAB PO ×4 (09:44→23:46)
[2018-07-14] MEDS: DIPHENHYDRAMINE 50 MG INJ IV ×2 (09:47→22:01)
[2018-07-14] MEDS: IOHEXOL 300MG/ML 30 ML BTL (10:52)
[2018-07-14] MEDS: LIDOCAINE 1% (MDV) 10 ML INJ (10:52)
[2018-07-14] MEDS: OXYCODONE/ACETAMINOPHEN (5/325) TAB PO (15:41)
[2018-07-14] MEDS: CEFTRIAXONE 1 GM/50 ML (PMX) 50 ML IVPB (16:17)
[2018-07-14] MEDS: VANCOMYCIN 500MG/NS (PMX) 100 ML IVPB (22:41)
[2018-07-15 05:20] LABS: ADD MAN DIFF? NO
[2018-07-15 05:31] LABS: WHITE BLOOD COUNT 6.2 10^3/ul (4.8-10.8)
[2018-07-15 05:31] LABS: BASOPHIL # 0.1 10^3/ul (0.0-0.1); BASOPHILS % 0.8 % (0.0-2.0); EOSINOPHILS # 1.1 10^3/ul (0.0-0.5); EOSINOPHILS % 18.2 % (0.0-7.0); HEMATOCRIT 31.2 % (37.0-47.0); HEMOGLOBIN 9.6 g/dl (12.0-16.0); IMMATURE GRANS #M 0.04 10^3/ul; IMMATURE GRANS % (M) 0.6 %; LYMPHOCYTES # 1.4 10^3/ul (0.8-2.9); LYMPHOCYTES % 22.2 % (15.0-51.0); MEAN CORPUSCULAR HEMOGLOBIN 30.8 pg (29.0-33.0); MEAN CORPUSCULAR HGB CONC 30.8 g/dl (32.0-37.0); MEAN PLATELET VOLUME 9.3 fl (7.4-10.4); MONOCYTE # 0.6 10^3/ul (0.3-0.9); MONOCYTES % 9.8 % (0.0-11.0); NEUTROPHILS % 48.4 % (39.0-77.0); PLATELET COUNT 267 10^3/UL (140-415); RED BLOOD COUNT 3.12 10^6/ul (4.20-5.40); RED CELL DISTRIBUTION WIDTH 14.1 % (11.5-14.5)
[2018-07-15] MEDS: PANTOPRAZOLE (EC) 40 MG TAB PO (05:39)
[2018-07-15] MEDS: DIPHENHYDRAMINE 50 MG INJ IV ×2 (05:39→18:46)
[2018-07-15] MEDS: HYDROmorphONE 2 MG TAB PO ×4 (05:39→22:43)
[2018-07-15] MEDS: HEPARIN 5,000 UNIT/0.5 ML VIAL SC ×3 (05:41→22:43)
[2018-07-15 06:07] LABS: ALBUMIN 2.7 g/dl (3.3-4.9); ANION GAP 8 (8-16); BLOOD UREA NITROGEN 13 mg/dl (7-20); CALCIUM 8.6 mg/dl (8.4-10.2); CARBON DIOXIDE 30 mmol/L (21-31); CHLORIDE 107 mmol/L (97-110); CREATININE 0.71 mg/dl (0.44-1.00); GLUCOSE 97 mg/dl (70-220); MAGNESIUM 1.7 mg/dl (1.7-2.5); PHOSPHORUS 3.7 mg/dl (2.5-4.9); POTASSIUM 3.8 mmol/L (3.5-5.1); SODIUM 141 mmol/L (135-144)
[2018-07-15] MEDS: GABAPENTIN 300 MG CAP PO ×3 (08:18→22:40)
[2018-07-15] MEDS: MULTIVITAMINS THERAPEUTIC TAB PO (08:18)
[2018-07-15] MEDS: SERTRALINE 50 MG TAB PO (08:19)
[2018-07-15] MEDS ORDERED: METHYLPREDNISOLONE (MEDROL) DOSE PACK PO (11:30)
[2018-07-15] MEDS: VANCOMYCIN 500MG/NS (PMX) 100 ML IVPB ×2 (11:30→22:40)
[2018-07-15] MEDS: OXYCODONE/ACETAMINOPHEN (5/325) TAB PO (11:42)
[2018-07-15] MEDS: CEFTRIAXONE 1 GM/50 ML (PMX) 50 ML IVPB (18:39)
[2018-07-16 00:10] LABS: IMMEDIATE SPIN CROSSMATCH 1 4
[2018-07-16] MEDS: OXYCODONE/ACETAMINOPHEN (5/325) TAB PO ×2 (01:41→16:39)
[2018-07-16 05:04] LABS: ADD MAN DIFF? NO
[2018-07-16 05:13] LABS: BASOPHILS % 0.4 % (0.0-2.0); EOSINOPHILS % 14.3 % (0.0-7.0); HEMOGLOBIN 10.3 g/dl (12.0-16.0); IMMATURE GRANS #M 0.03 10^3/ul; IMMATURE GRANS % (M) 0.4 %; LYMPHOCYTES # 1.4 10^3/ul (0.8-2.9); LYMPHOCYTES % 19.9 % (15.0-51.0); MEAN CORPUSCULAR HEMOGLOBIN 31.4 pg (29.0-33.0); MEAN CORPUSCULAR HGB CONC 32.2 g/dl (32.0-37.0); MEAN CORPUSCULAR VOLUME 97.6 fl (82.0-101.0); MEAN PLATELET VOLUME 9.2 fl (7.4-10.4); MONOCYTE # 0.7 10^3/ul (0.3-0.9); MONOCYTES % 9.9 % (0.0-11.0); NEUTROPHIL # 3.9 10^3/ul (1.6-7.5); NEUTROPHILS % 55.1 % (39.0-77.0); PLATELET COUNT 259 10^3/UL (140-415); RED BLOOD COUNT 3.28 10^6/ul (4.20-5.40); RED CELL DISTRIBUTION WIDTH 13.7 % (11.5-14.5)
[2018-07-16 05:36] LABS: ALBUMIN 2.7 g/dl (3.3-4.9); ANION GAP 8 (8-16); BLOOD UREA NITROGEN 15 mg/dl (7-20); CALCIUM 8.6 mg/dl (8.4-10.2); CARBON DIOXIDE 30 mmol/L (21-31); CHLORIDE 106 mmol/L (97-110); CREATININE 0.77 mg/dl (0.44-1.00); GLUCOSE 94 mg/dl (70-220); MAGNESIUM 1.7 mg/dl (1.7-2.5); PHOSPHORUS 3.4 mg/dl (2.5-4.9); POTASSIUM 4.1 mmol/L (3.5-5.1); SODIUM 140 mmol/L (135-144)
[2018-07-16] MEDS: PANTOPRAZOLE (EC) 40 MG TAB PO (05:39)
[2018-07-16] MEDS: morphine 2 MG INJ IV ×2 (06:49→12:54)
[2018-07-16] MEDS: SERTRALINE 50 MG TAB PO (09:00)
[2018-07-16] MEDS: MULTIVITAMINS THERAPEUTIC TAB PO (09:00)
[2018-07-16] MEDS: GABAPENTIN 300 MG CAP PO ×3 (09:00→20:31)
[2018-07-16] MEDS: HYDROmorphONE 2 MG TAB PO (10:37)
[2018-07-16] MEDS: VANCOMYCIN 500MG/NS (PMX) 100 ML IVPB ×2 (10:41→22:59)
[2018-07-16 11:26] LABS: PROCALCITONIN 0.13 ng/mL (<0.10)
[2018-07-16] MEDS: CEFTRIAXONE 1 GM/50 ML (PMX) 50 ML IVPB (15:19)
[2018-07-16] MEDS: DIPHENHYDRAMINE 50 MG INJ IV (23:06)
[2018-07-17] MEDS: morphine 2 MG INJ IV ×3 (01:18→11:35)
[2018-07-17] MEDS: PANTOPRAZOLE (EC) 40 MG TAB PO (05:50)
[2018-07-17] MEDS: MULTIVITAMINS THERAPEUTIC TAB PO (08:58)
[2018-07-17] MEDS: SERTRALINE 50 MG TAB PO (08:58)
[2018-07-17] MEDS: GABAPENTIN 300 MG CAP PO ×3 (08:58→20:14)
[2018-07-17] MEDS: VANCOMYCIN 500MG/NS (PMX) 100 ML IVPB ×2 (10:25→22:59)
[2018-07-17] MEDS: CEFTRIAXONE 1 GM/50 ML (PMX) 50 ML IVPB (16:41)
[2018-07-17] MEDS: OXYCODONE/ACETAMINOPHEN (5/325) TAB PO ×2 (16:41→20:13)
[2018-07-17] MEDS: morphine LIQ (10 MG/5 ML) CUP PO ×2 (18:23→22:32)
[2018-07-17 22:54] LABS: VANCOMYCIN,TROUGH 9.1 ug/ml (10.0-20.0)
[2018-07-17] MEDS: DIPHENHYDRAMINE 50 MG INJ IV (23:47)
[2018-07-18] MEDS: morphine LIQ (10 MG/5 ML) CUP PO ×2 (05:07→22:55)
[2018-07-18] MEDS: PANTOPRAZOLE (EC) 40 MG TAB PO (06:00)
[2018-07-18 06:34] LABS: BLOOD UREA NITROGEN 13 mg/dl (7-20)
[2018-07-18 06:34] LABS: CREATININE 0.65 mg/dl (0.44-1.00)
[2018-07-18] MEDS: GABAPENTIN 300 MG CAP PO ×3 (09:34→20:10)
[2018-07-18] MEDS: SERTRALINE 50 MG TAB PO (09:34)
[2018-07-18] MEDS: MULTIVITAMINS THERAPEUTIC TAB PO (09:34)
[2018-07-18] MEDS: OXYCODONE/ACETAMINOPHEN (5/325) TAB PO ×2 (10:34→20:10)
[2018-07-18] MEDS: VANCOMYCIN 750 MG in SOD CHLORIDE 0.9% 150 ML IVPB ×2 (10:34→22:43)
[2018-07-18] MEDS: DIPHENHYDRAMINE 50 MG INJ IV (13:56)
[2018-07-18] MEDS: CEFTRIAXONE 1 GM/50 ML (PMX) 50 ML IVPB (17:09)
[2018-07-18] MEDS: AL HYDROX/MG HYDROX/SIMETH 30 ML CUP PO (22:29)
[2018-07-19] MEDS: DIPHENHYDRAMINE 50 MG INJ IV ×2 (03:12→21:24)
[2018-07-19] MEDS: OXYCODONE/ACETAMINOPHEN (5/325) TAB PO (05:00)
[2018-07-19 05:33] LABS: ADD MAN DIFF? NO; BASOPHIL # 0.1 10^3/ul (0.0-0.1); BASOPHILS % 0.9 % (0.0-2.0); EOSINOPHILS # 0.8 10^3/ul (0.0-0.5); EOSINOPHILS % 12.2 % (0.0-7.0); HEMATOCRIT 38.5 % (37.0-47.0); HEMOGLOBIN 12.2 g/dl (12.0-16.0); LYMPHOCYTES # 1.1 10^3/ul (0.8-2.9); LYMPHOCYTES % 17.7 % (15.0-51.0); MEAN CORPUSCULAR HEMOGLOBIN 30.7 pg (29.0-33.0); MEAN CORPUSCULAR HGB CONC 31.7 g/dl (32.0-37.0); MEAN PLATELET VOLUME 9.1 fl (7.4-10.4); MONOCYTE # 0.6 10^3/ul (0.3-0.9); MONOCYTES % 9.1 % (0.0-11.0); NEUTROPHIL # 3.8 10^3/ul (1.6-7.5); NEUTROPHILS % 59.8 % (39.0-77.0); PLATELET COUNT 211 10^3/UL (140-415); RED BLOOD COUNT 3.97 10^6/ul (4.20-5.40); RED CELL DISTRIBUTION WIDTH 14.6 % (11.5-14.5)
[2018-07-19 05:33] LABS: WHITE BLOOD COUNT 6.4 10^3/ul (4.8-10.8)
[2018-07-19 05:47] LABS: INR 0.93; PROTIME 12.5 Sec (11.9-14.9)
[2018-07-19] MEDS: PANTOPRAZOLE (EC) 40 MG TAB PO (06:35)
[2018-07-19] MEDS: SERTRALINE 50 MG TAB PO (09:18)
[2018-07-19] MEDS: MULTIVITAMINS THERAPEUTIC TAB PO (09:18)
[2018-07-19] MEDS: morphine LIQ (10 MG/5 ML) CUP PO ×3 (09:18→19:03)
[2018-07-19] MEDS: GABAPENTIN 300 MG CAP PO ×3 (09:18→21:02)
[2018-07-19] MEDS: AL HYDROX/MG HYDROX/SIMETH 30 ML CUP PO (09:39)
[2018-07-19] MEDS: VANCOMYCIN 750 MG in SOD CHLORIDE 0.9% 150 ML IVPB ×2 (11:47→23:05)
[2018-07-19] MEDS: CEFTRIAXONE 1 GM/50 ML (PMX) 50 ML IVPB (17:23)
[2018-07-20] MEDS ORDERED: morphine 2 MG INJ IV (04:30)
[2018-07-20] MEDS: PANTOPRAZOLE (EC) 40 MG TAB PO (05:31)
[2018-07-20] MEDS ORDERED: ROPIVACAINE 0.5 % 30 ML VIAL (07:37)
[2018-07-20] MEDS ORDERED: CEFAZOLIN 1 GM INJ ×2 (07:37→12:08)
[2018-07-20] MEDS ORDERED: MIDAZOLAM 1 MG/ML 2 ML INJ (07:37)
[2018-07-20] MEDS ORDERED: BUPIVACAINE 0.75%/DEXT (SPINAL) 2 ML INJ (07:37)
[2018-07-20] MEDS ORDERED: morphine SULFATE/PF (10 MG/10 ML) INJ (07:37)
[2018-07-20] MEDS ORDERED: PROPOFOL 20 ML (07:37)
[2018-07-20] MEDS ORDERED: ROCURONIUM 50 MG INJ ×2 (07:37→12:08)
[2018-07-20] MEDS ORDERED: PHENYLephrine (100 MCG/ML) 5ML SYG ×3 (08:33→13:08)
[2018-07-20] MEDS ORDERED: EPHEDrine SULFATE 50 MG/5 ML SYG (08:33)
[2018-07-20] MEDS ORDERED: hydrALAzine 20 MG INJ (08:37)
[2018-07-20] MEDS: GABAPENTIN 300 MG CAP PO ×3 (09:00→20:22)
[2018-07-20] MEDS ORDERED: EPHEDrine SULFATE 50 MG/5 ML SYG IV (10:00)
[2018-07-20] MEDS ORDERED: FENTAnyl 50 MCG/ML VIAL IV ×2 (10:00)
[2018-07-20] MEDS ORDERED: hydrALAzine 20 MG INJ IV (10:00)
[2018-07-20] MEDS ORDERED: MEPERIDINE 25 MG INJ IV (10:00)
[2018-07-20] MEDS ORDERED: LABETALOL HCL 20MG INJ IV (10:00)
[2018-07-20] MEDS ORDERED: ALBUMIN HUMAN 5% 250 ML IV (10:00)
[2018-07-20] MEDS ORDERED: METOCLOPRAMIDE 10 MG INJ IV (10:00)
[2018-07-20] MEDS ORDERED: NALOXONE (0.4 MG/ML) INJ IV (10:00)
[2018-07-20] MEDS ORDERED: ONDANSETRON 4 MG INJ IV ×2 (10:00)
[2018-07-20] MEDS ORDERED: DIPHENHYDRAMINE 50 MG INJ IV (10:00)
[2018-07-20] MEDS ORDERED: ACETAMINOPHEN 500 MG TAB PO (10:00)
[2018-07-20] MEDS: POLYMYXIN B 500000 UNIT INJ ×2 (10:10)
[2018-07-20] MEDS: BACITRACIN 50000 UNITS INJ IRR ×2 (10:10)
[2018-07-20] MEDS: POLYMYXIN/BACITRACIN 1L IRRIG (10:10)
[2018-07-20] MEDS ORDERED: ACETAMINOPHEN 1000MG/100ML IV 100 ML (10:20)
[2018-07-20] MEDS ORDERED: DEXAMETHASONE 4 MG/ML 1 ML INJ (10:20)
[2018-07-20] MEDS ORDERED: HETASTARCH 6% NACL 500 ML (10:20)
[2018-07-20] MEDS ORDERED: ONDANSETRON 4 MG INJ (10:20)
[2018-07-20] MEDS ORDERED: METOCLOPRAMIDE 10 MG INJ (10:20)
[2018-07-20] MEDS ORDERED: KETOROLAC 30 MG INJ (10:20)
[2018-07-20] MEDS: DEXTROSE 5% IVPB ×2 (10:30→12:15)
[2018-07-20] MEDS: TRANEXAMIC ACID IVPB ×2 (10:30→12:15)
[2018-07-20] MEDS: VANCOMYCIN 750 MG in SOD CHLORIDE 0.9% 150 ML IVPB ×2 (11:00→22:11)
[2018-07-20] MEDS: VANCOMYCIN 1 GM INJ (11:33)
[2018-07-20] MEDS ORDERED: SUGAMMADEX SODIUM 200 MG/2 ML VIAL IV (13:46)
[2018-07-20] MEDS ORDERED: NACL 0.9% 3 ML SYG IV (14:00)
[2018-07-20] MEDS ORDERED: OXYCODONE/ACETAMINOPHEN (5/325) TAB PO (14:00)
[2018-07-20] MEDS: FENTAnyl 50 MCG/ML VIAL IV (14:15)
[2018-07-20] MEDS: DIPHENHYDRAMINE 50 MG INJ IV ×2 (14:52→20:22)
[2018-07-20 15:23] LABS: ADD MAN DIFF? NO
[2018-07-20 15:39] LABS: BASOPHILS % 0.2 % (0.0-2.0); EOSINOPHILS % 0.1 % (0.0-7.0); HEMATOCRIT 30.4 % (37.0-47.0); HEMOGLOBIN 9.8 g/dl (12.0-16.0); LYMPHOCYTES # 0.7 10^3/ul (0.8-2.9); LYMPHOCYTES % 4.4 % (15.0-51.0); MEAN CORPUSCULAR HEMOGLOBIN 31.5 pg (29.0-33.0); MEAN CORPUSCULAR HGB CONC 32.2 g/dl (32.0-37.0); MEAN CORPUSCULAR VOLUME 97.7 fl (82.0-101.0); MEAN PLATELET VOLUME 9.6 fl (7.4-10.4); MONOCYTE # 0.5 10^3/ul (0.3-0.9); NEUTROPHIL # 14.4 10^3/ul (1.6-7.5); NEUTROPHILS % 91.8 % (39.0-77.0); PLATELET COUNT 188 10^3/UL (140-415); RED BLOOD COUNT 3.11 10^6/ul (4.20-5.40); RED CELL DISTRIBUTION WIDTH 14.4 % (11.5-14.5)
[2018-07-20 15:39] LABS: WHITE BLOOD COUNT 15.7 10^3/ul (4.8-10.8)
[2018-07-20] MEDS: SOD CHLORIDE 0.9% 1,000 ML IV (15:39)
[2018-07-20] MEDS: CEFTRIAXONE 1 GM/50 ML (PMX) 50 ML IVPB (15:51)
[2018-07-20] MEDS: SERTRALINE 50 MG TAB PO (15:51)
[2018-07-20] MEDS: MULTIVITAMINS THERAPEUTIC TAB PO (15:51)
[2018-07-20] MEDS: morphine 4 MG/ML VIAL IV (23:52)
[2018-07-21] MEDS: SOD CHLORIDE 0.9% 1,000 ML IV ×2 (05:10→14:57)
[2018-07-21] MEDS: PANTOPRAZOLE (EC) 40 MG TAB PO (05:10)
[2018-07-21 05:22] LABS: ADD MAN DIFF? NO
[2018-07-21 05:25] LABS: BASOPHILS % 0.1 % (0.0-2.0); HEMOGLOBIN 8.8 g/dl (12.0-16.0); LYMPHOCYTES # 0.7 10^3/ul (0.8-2.9); LYMPHOCYTES % 5.3 % (15.0-51.0); MEAN CORPUSCULAR HEMOGLOBIN 31.5 pg (29.0-33.0); MEAN CORPUSCULAR HGB CONC 32.6 g/dl (32.0-37.0); MEAN CORPUSCULAR VOLUME 96.8 fl (82.0-101.0); MEAN PLATELET VOLUME 9.7 fl (7.4-10.4); MONOCYTE # 0.9 10^3/ul (0.3-0.9); MONOCYTES % 6.7 % (0.0-11.0); NEUTROPHILS % 87.5 % (39.0-77.0); PLATELET COUNT 201 10^3/UL (140-415); RED BLOOD COUNT 2.79 10^6/ul (4.20-5.40); RED CELL DISTRIBUTION WIDTH 14.5 % (11.5-14.5)
[2018-07-21 05:25] LABS: WHITE BLOOD COUNT 13.7 10^3/ul (4.8-10.8)
[2018-07-21 05:45] LABS: ANION GAP 8 (8-16); BLOOD UREA NITROGEN 16 mg/dl (7-20); CALCIUM 8.3 mg/dl (8.4-10.2); CARBON DIOXIDE 25 mmol/L (21-31); CHLORIDE 109 mmol/L (97-110); CREATININE 0.67 mg/dl (0.44-1.00); GLUCOSE 117 mg/dl (70-220); MAGNESIUM 1.6 mg/dl (1.7-2.5); POTASSIUM 4.2 mmol/L (3.5-5.1); SODIUM 138 mmol/L (135-144)
[2018-07-21] MEDS: morphine 4 MG/ML VIAL IV ×6 (05:53→22:05)
[2018-07-21] MEDS: MULTIVITAMINS THERAPEUTIC TAB PO (08:47)
[2018-07-21] MEDS: GABAPENTIN 300 MG CAP PO ×3 (08:47→22:04)
[2018-07-21] MEDS: SERTRALINE 50 MG TAB PO (08:48)
[2018-07-21] MEDS: OXYCODONE/ACETAMINOPHEN (5/325) TAB PO (08:48)
[2018-07-21] MEDS: ENOXAPARIN 40 MG/0.4 ML SYG SC (08:48)
[2018-07-21] MEDS: VANCOMYCIN 750 MG in SOD CHLORIDE 0.9% 150 ML IVPB ×2 (11:37→22:19)
[2018-07-21] MEDS: MAGNESIUM OXIDE 400 MG TAB PO (16:19)
[2018-07-21] MEDS: CEFTRIAXONE 1 GM/50 ML (PMX) 50 ML IVPB (16:20)
[2018-07-22] MEDS: LORAZEPAM 0.5 MG TAB PO (00:49)
[2018-07-22] MEDS: SOD CHLORIDE 0.9% 1,000 ML IV (03:27)
[2018-07-22] MEDS: morphine 4 MG/ML VIAL IV ×2 (03:41→07:46)
[2018-07-22] MEDS: PANTOPRAZOLE (EC) 40 MG TAB PO (05:31)
[2018-07-22 05:32] LABS: ADD MAN DIFF? NO; BASOPHIL # 0.1 10^3/ul (0.0-0.1); BASOPHILS % 0.5 % (0.0-2.0); EOSINOPHILS # 0.2 10^3/ul (0.0-0.5); EOSINOPHILS % 1.7 % (0.0-7.0); HEMATOCRIT 29.5 % (37.0-47.0); HEMOGLOBIN 9.4 g/dl (12.0-16.0); LYMPHOCYTES # 1.1 10^3/ul (0.8-2.9); LYMPHOCYTES % 8.4 % (15.0-51.0); MEAN CORPUSCULAR HEMOGLOBIN 31.2 pg (29.0-33.0); MEAN CORPUSCULAR HGB CONC 31.9 g/dl (32.0-37.0); MEAN PLATELET VOLUME 9.3 fl (7.4-10.4); MONOCYTE # 1.2 10^3/ul (0.3-0.9); MONOCYTES % 9.5 % (0.0-11.0); NEUTROPHILS % 79.5 % (39.0-77.0); PLATELET COUNT 243 10^3/UL (140-415); RED BLOOD COUNT 3.01 10^6/ul (4.20-5.40); RED CELL DISTRIBUTION WIDTH 14.6 % (11.5-14.5)
[2018-07-22 05:32] LABS: WHITE BLOOD COUNT 12.6 10^3/ul (4.8-10.8)
[2018-07-22 05:40] LABS: ALBUMIN 2.2 g/dl (3.3-4.9); ANION GAP 9 (8-16); BLOOD UREA NITROGEN 14 mg/dl (7-20); CALCIUM 8.7 mg/dl (8.4-10.2); CARBON DIOXIDE 27 mmol/L (21-31); CHLORIDE 105 mmol/L (97-110); GLUCOSE 106 mg/dl (70-220); MAGNESIUM 1.5 mg/dl (1.7-2.5); PHOSPHORUS 3.6 mg/dl (2.5-4.9); POTASSIUM 4.4 mmol/L (3.5-5.1); SODIUM 137 mmol/L (135-144)
[2018-07-22] MEDS: MULTIVITAMINS THERAPEUTIC TAB PO (09:20)
[2018-07-22] MEDS: GABAPENTIN 300 MG CAP PO ×3 (09:20→21:19)
[2018-07-22] MEDS: SERTRALINE 50 MG TAB PO (09:20)
[2018-07-22] MEDS: ENOXAPARIN 40 MG/0.4 ML SYG SC (09:22)
[2018-07-22] MEDS: ACETAMINOPHEN 325 MG TAB PO (09:29)
[2018-07-22] MEDS: VANCOMYCIN 750 MG in SOD CHLORIDE 0.9% 150 ML IVPB ×2 (12:05→23:00)
[2018-07-22] MEDS: CEFTRIAXONE 1 GM/50 ML (PMX) 50 ML IVPB (17:08)
[2018-07-22] MEDS: HALOPERIDOL 5 MG INJ IM (21:18)
[2018-07-22] MEDS: LORAZEPAM 2 MG INJ IM (21:19)
[2018-07-22] MEDS: ENOXAPARIN 100 MG/ML SYG SC (21:49)
[2018-07-23] MEDS: morphine LIQ (10 MG/5 ML) CUP PO (05:06)
[2018-07-23] MEDS: PANTOPRAZOLE (EC) 40 MG TAB PO (05:07)
[2018-07-23 05:17] LABS: ADD MAN DIFF? NO
[2018-07-23 05:20] LABS: WHITE BLOOD COUNT 7.7 10^3/ul (4.8-10.8)
[2018-07-23 05:20] LABS: BASOPHILS % 0.5 % (0.0-2.0); EOSINOPHILS # 0.2 10^3/ul (0.0-0.5); EOSINOPHILS % 2.9 % (0.0-7.0); HEMOGLOBIN 8.4 g/dl (12.0-16.0); LYMPHOCYTES # 1.1 10^3/ul (0.8-2.9); LYMPHOCYTES % 13.7 % (15.0-51.0); MEAN CORPUSCULAR HEMOGLOBIN 31.2 pg (29.0-33.0); MEAN CORPUSCULAR HGB CONC 32.3 g/dl (32.0-37.0); MEAN CORPUSCULAR VOLUME 96.7 fl (82.0-101.0); MEAN PLATELET VOLUME 9.2 fl (7.4-10.4); MONOCYTE # 0.8 10^3/ul (0.3-0.9); MONOCYTES % 10.7 % (0.0-11.0); NEUTROPHIL # 5.5 10^3/ul (1.6-7.5); NEUTROPHILS % 71.9 % (39.0-77.0); PLATELET COUNT 236 10^3/UL (140-415); RED BLOOD COUNT 2.69 10^6/ul (4.20-5.40); RED CELL DISTRIBUTION WIDTH 14.4 % (11.5-14.5)
[2018-07-23 05:55] LABS: ALBUMIN 2.3 g/dl (3.3-4.9); ANION GAP 8 (8-16); BLOOD UREA NITROGEN 11 mg/dl (7-20); CALCIUM 8.7 mg/dl (8.4-10.2); CARBON DIOXIDE 27 mmol/L (21-31); CHLORIDE 107 mmol/L (97-110); CREATININE 0.61 mg/dl (0.44-1.00); GLUCOSE 94 mg/dl (70-220); MAGNESIUM 1.6 mg/dl (1.7-2.5); PHOSPHORUS 4.1 mg/dl (2.5-4.9); POTASSIUM 3.8 mmol/L (3.5-5.1); SODIUM 138 mmol/L (135-144)
[2018-07-23] MEDS: MULTIVITAMINS THERAPEUTIC TAB PO (08:14)
[2018-07-23] MEDS: SERTRALINE 50 MG TAB PO (08:14)
[2018-07-23] MEDS: AL HYDROX/MG HYDROX/SIMETH 30 ML CUP PO (08:14)
[2018-07-23] MEDS: ACETAMINOPHEN 325 MG TAB PO (08:14)
[2018-07-23] MEDS: GABAPENTIN 300 MG CAP PO ×3 (08:14→21:01)
[2018-07-23] MEDS: ENOXAPARIN 100 MG/ML SYG SC (08:16)
[2018-07-23] MEDS ORDERED: LORAZEPAM 2 MG INJ IV (09:30)
[2018-07-23] MEDS: OXYCODONE/ACETAMINOPHEN (5/325) TAB PO ×3 (11:27→21:01)
[2018-07-23] MEDS: MAGNESIUM OXIDE 400 MG TAB PO (11:27)
[2018-07-23] MEDS: APIXABAN 5 MG TABLET PO ×2 (13:28→21:01)
[2018-07-23] MEDS: LIDOCAINE 1% (MPF) 5 ML VIAL SC (15:00)
[2018-07-23] MEDS: SOD CHLORIDE 0.9% 100 ML (15:30)
[2018-07-23] MEDS: CEFTRIAXONE 1 GM/50 ML (PMX) 50 ML IVPB (16:11)
[2018-07-23] MEDS: VANCOMYCIN 750 MG in SOD CHLORIDE 0.9% 150 ML IVPB (17:06)
== END 2018-07-23 22:20 | DRG 467 ==
LOC: MS1 23:00 → E/R 19:56
PROC: 0SRR0JZ Replacement of Right Hip Joint, Femoral Surface with Synthetic Substitute, Open Approach (ICD-10-PCS; principal; 2018-07-20 07:30)
PROC: 0SPR0JZ Removal of Synthetic Substitute from Right Hip Joint, Femoral Surface, Open Approach (ICD-10-PCS; 2018-07-20 07:30)
PROC: 0QR Lower Bones, Replacement (ICD-10-PCS; 2018-07-20 07:30)
PROC: 0QS804Z Reposition Right Femoral Shaft with Internal Fixation Device, Open Approach (ICD-10-PCS; 2018-07-20 07:30)
PROC: C713DZZ Planar Nuclear Medicine Imaging of Blood using Indium 111 (In-111) (ICD-10-PCS; 2018-07-20 08:16)
PROC: 02HV33Z Insertion of Infusion Device into Superior Vena Cava, Percutaneous Approach (ICD-10-PCS; 2018-07-20 08:16)
PROC: B548ZZA Ultrasonography of Superior Vena Cava, Guidance (ICD-10-PCS; 2018-07-20 08:16)
PROC: 30233N1 Transfusion of Nonautologous Red Blood Cells into Peripheral Vein, Percutaneous Approach (ICD-10-PCS; 2018-07-20 08:16)
DX: T84.020A Dislocation of internal right hip prosthesis, initial encounter (principal); E44.0 Moderate protein-calorie malnutrition; I82.611 Acute embolism and thrombosis of superficial veins of right upper extremity; Z98.890 Other specified postprocedural states; I10 Essential (primary) hypertension; Y79.2 Prosthetic and other implants, materials and accessory orthopedic devices associated with adverse incidents; Y92.009 Unspecified place in unspecified non-institutional (private) residence as the place of occurrence of the external cause; Z98.84 Bariatric surgery status; F17.200 Nicotine dependence, unspecified, uncomplicated; F39 Unspecified mood [affective] disorder; E78.5 Hyperlipidemia, unspecified; E66.9 Obesity, unspecified; Z68.35 Body mass index [BMI] 35.0-35.9, adult; M97.01XA Periprosthetic fracture around internal prosthetic right hip joint, initial encounter; D64.9 Anemia, unspecified; F32.9 Major depressive disorder, single episode, unspecified; F41.9 Anxiety disorder, unspecified; D72.829 Elevated white blood cell count, unspecified; R50.82 Postprocedural fever
CPT/HCPCS: 36415; 36430; 36569; 71045; 72192; 73500; 73510; 73530; 73721; 76937; 77002; 78806; 80048; 80053; 80069; 80202; 82565; 83605; 83735; 84100; 84145; 84520; 85025; 85610; 86850; 86900; 86901; 86920; 87040; 87070; 87075; 87081; 87086; 88300; 93971; 96374; 96375; 97110; 97162; 97530; 99285-25

== ENCOUNTER 2018-07-29 19:50 | Inpatient (IN) | payer OTHER ==
[2018-07-29] MEDS: FAMOTIDINE 20 MG INJ INJ (20:14)
[2018-07-29] MEDS: SOD CHLORIDE 0.9% 1,000 ML IV (20:14)
[2018-07-29 20:19] LABS: WHITE BLOOD COUNT 5.6 10^3/ul (4.8-10.8)
[2018-07-29 20:19] LABS: ABNORMAL IP MESSAGE 1; HEMATOCRIT 20.9 % (37.0-47.0); MEAN CORPUSCULAR HEMOGLOBIN 31.5 pg (29.0-33.0); MEAN CORPUSCULAR HGB CONC 32.1 g/dl (32.0-37.0); MEAN CORPUSCULAR VOLUME 98.1 fl (82.0-101.0); MEAN PLATELET VOLUME 8.6 fl (7.4-10.4); PLATELET COUNT 283 10^3/UL (140-415); RED BLOOD COUNT 2.13 10^6/ul (4.20-5.40)
[2018-07-29 20:20] LABS: POSITIVE DIFF @See below
[2018-07-29 20:21] LABS: ADD MAN DIFF? YES; HEMOGLOBIN 6.7 g/dl (12.0-16.0)
[2018-07-29 20:33] LABS: INR 1.22; PROTIME 15.6 Sec (11.9-14.9); PT RATIO 1.2
[2018-07-29 20:34] LABS: PARTIAL THROMBOPLASTIN TIME 40.1 Sec (25.0-35.0)
[2018-07-29 20:35] LABS: ALANINE AMINOTRANSFERASE 29 IU/L (13-69); ALBUMIN 2.5 g/dl (3.3-4.9); ALBUMIN/GLOBULIN RATIO 0.89; ALKALINE PHOSPHATASE 430 IU/L (42-121); ANION GAP 8 (8-16); ASPARTATE AMINO TRANSFERASE 29 IU/L (15-46); BILIRUBIN,INDIRECT 0.2 mg/dl (0-1.1); BILIRUBIN,TOTAL 0.2 mg/dl (0.2-1.3); BLOOD UREA NITROGEN 13 mg/dl (7-20); CALCIUM 8.3 mg/dl (8.4-10.2); CARBON DIOXIDE 29 mmol/L (21-31); CHLORIDE 105 mmol/L (97-110); CREATININE 0.64 mg/dl (0.44-1.00); GLUCOSE 104 mg/dl (70-220); POTASSIUM 3.7 mmol/L (3.5-5.1); SODIUM 138 mmol/L (135-144); TOTAL PROTEIN 5.3 g/dl (6.1-8.1)
[2018-07-29 20:39] LABS: EOSINOPHILS % (M) 16 % (0-7); LYMPHOCYTES #M 1.6 10^3/ul (0.8-2.9); LYMPHOCYTES % (M) 29 % (15-51); MONOCYTE #M 0.5 10^3/ul (0.3-0.9); MONOCYTES % (M) 10 % (0-11); PLATELET ESTIMATE NORMAL; POLYCHROMASIA 1+ (0-0); REACTIVE LYMPHOCYTES #M 0.3 10^3/ul (0.0-0.0); REACTIVE LYMPHOCYTES% (M) 6 % (0-0); SEGMENTED NEUTROPHILS (M) % 39 % (39-77); SMUDGE%M 6 % (0-0)
[2018-07-29 20:47] LABS: TROPONIN-I < 0.012 ng/ml (0.000-0.120)
[2018-07-29] MEDS: morphine 4 MG/ML VIAL IV (23:02)
[2018-07-29 23:13] LABS: RETICULOCYTE RBC 1.98
[2018-07-29 23:13] LABS: RETICULOCYTE COUNT # 0.024 X10^6 (0.020-0.110); RETICULOCYTE COUNT % 1.2 % (0.5-1.5)
[2018-07-29 23:29] LABS: LACTATE DEHYDROGENASE 1112 IU/L (313-618)
[2018-07-29 23:29] LABS: IRON 139 ug/dl (35-150)
[2018-07-29 23:38] LABS: % IRON SATURATION 59 % SAT (22-52); TOTAL IRON BINDING CAPACITY 236 ug/dl (241-421)
[2018-07-30] MEDS ORDERED: ONDANSETRON 4 MG INJ IV (00:30)
[2018-07-30] MEDS: PANTOPRAZOLE 40 MG INJ IV ×3 (01:01→18:31)
[2018-07-30] MEDS ORDERED: NACL 0.9% 3 ML SYG IV (01:30)
[2018-07-30] MEDS ORDERED: SENNA TAB PO (01:30)
[2018-07-30] MEDS ORDERED: ALBUTEROL/IPRATROPIUM (NEB) 3 ML AMP HHN (01:30)
[2018-07-30] MEDS ORDERED: ACETAMINOPHEN 325 MG TAB PO (01:30)
[2018-07-30] MEDS: ACETAMINOPHEN 325 MG TAB PO ×2 (01:49→09:51)
[2018-07-30] MEDS: SOD CHLORIDE 0.9% 250 ML IV (04:11)
[2018-07-30] MEDS: DEXTROSE 5%-0.45% NACL 1,000 ML IV ×2 (06:29→17:00)
[2018-07-30] MEDS ORDERED: VANCOMYCIN IV PER PHARMACY XX (09:00)
[2018-07-30] MEDS: CEFTRIAXONE 1 GM/50 ML (PMX) 50 ML IVPB (09:18)
[2018-07-30] MEDS: SERTRALINE 50 MG TAB PO (09:20)
[2018-07-30] MEDS: MULTIVITAMINS THERAPEUTIC TAB PO (09:20)
[2018-07-30] MEDS: LORATADINE 10 MG TAB PO (09:20)
[2018-07-30] MEDS: GABAPENTIN 300 MG CAP PO ×3 (09:20→20:41)
[2018-07-30 10:07] LABS: IRON 149 ug/dl (35-150)
[2018-07-30 10:09] LABS: ANION GAP 6 (8-16); BLOOD UREA NITROGEN 13 mg/dl (7-20); CALCIUM 8.2 mg/dl (8.4-10.2); CARBON DIOXIDE 27 mmol/L (21-31); CHLORIDE 108 mmol/L (97-110); CREATININE 0.64 mg/dl (0.44-1.00); GLUCOSE 100 mg/dl (70-220); MAGNESIUM 1.6 mg/dl (1.7-2.5); PHOSPHORUS 3.7 mg/dl (2.5-4.9); SODIUM 137 mmol/L (135-144)
[2018-07-30 10:13] LABS: VANCOMYCIN,RANDOM 11.5 ug/ml
[2018-07-30 10:16] LABS: % IRON SATURATION 62 % SAT (22-52); TOTAL IRON BINDING CAPACITY 239 ug/dl (241-421)
[2018-07-30] MEDS ORDERED: morphine 2 MG INJ IV (10:30)
[2018-07-30] MEDS: DIPHENHYDRAMINE 25 MG CAP PO ×2 (10:42→18:31)
[2018-07-30 10:54] LABS: IMMEDIATE SPIN CROSSMATCH 1 4
[2018-07-30] MEDS: VANCOMYCIN 750 MG in SOD CHLORIDE 0.9% 150 ML IVPB (14:50)
[2018-07-30 15:55] LABS: ADD MAN DIFF? NO
[2018-07-30 15:57] LABS: WHITE BLOOD COUNT 6.6 10^3/ul (4.8-10.8)
[2018-07-30 15:57] LABS: ABNORMAL IP MESSAGE 1; BASOPHILS % 0.2 % (0.0-2.0); EOSINOPHILS # 0.5 10^3/ul (0.0-0.5); EOSINOPHILS % 6.8 % (0.0-7.0); HEMATOCRIT 27.7 % (37.0-47.0); LYMPHOCYTES # 0.5 10^3/ul (0.8-2.9); LYMPHOCYTES % 7.6 % (15.0-51.0); MEAN CORPUSCULAR HEMOGLOBIN 31.1 pg (29.0-33.0); MEAN CORPUSCULAR HGB CONC 32.5 g/dl (32.0-37.0); MEAN CORPUSCULAR VOLUME 95.8 fl (82.0-101.0); MEAN PLATELET VOLUME 8.7 fl (7.4-10.4); MONOCYTE # 0.5 10^3/ul (0.3-0.9); NEUTROPHIL # 5.1 10^3/ul (1.6-7.5); NEUTROPHILS % 77.1 % (39.0-77.0); PLATELET COUNT 269 10^3/UL (140-415); RED BLOOD COUNT 2.89 10^6/ul (4.20-5.40); RED CELL DISTRIBUTION WIDTH 14.4 % (11.5-14.5)
[2018-07-30 16:07] LABS: POSITIVE DIFF @See below
[2018-07-30] MEDS: HYDROCODONE/APAP (5/325) TAB PO (16:20)
[2018-07-30 17:11] LABS: TROPONIN-I 0.015 ng/ml (0.000-0.120)
[2018-07-30] MEDS: BISACODYL (EC) 5 MG TAB PO (17:16)
[2018-07-30 17:33] LABS: OCCULT BLOOD STOOL NEGATIVE (NEGATIVE)
[2018-07-30] MEDS: MAGNESIUM OXIDE 400 MG TAB PO (20:41)
[2018-07-30] MEDS: MAGNESIUM CITRATE 300 ML BTL PO (20:41)
[2018-07-30] MEDS: POLYETHYLENE GLYCOL 3350 119 GM POWDER PO (20:42)
[2018-07-30] MEDS: OXYCODONE/ACETAMINOPHEN (5/325) TAB PO (21:15)
[2018-07-31] MEDS: OXYCODONE/ACETAMINOPHEN (5/325) TAB PO ×5 (01:20→22:35)
[2018-07-31] MEDS: DEXTROSE 5%-0.45% NACL 1,000 ML IV ×3 (01:44→18:20)
[2018-07-31] MEDS: VANCOMYCIN 750 MG in SOD CHLORIDE 0.9% 150 ML IVPB ×2 (01:44→12:19)
[2018-07-31] MEDS: POLYETHYLENE GLYCOL 3350 119 GM POWDER PO ×2 (05:48→21:24)
[2018-07-31 05:51] LABS: ADD MAN DIFF? NO
[2018-07-31 05:58] LABS: WHITE BLOOD COUNT 5.1 10^3/ul (4.8-10.8)
[2018-07-31 05:58] LABS: BASOPHILS % 0.4 % (0.0-2.0); EOSINOPHILS # 1.1 10^3/ul (0.0-0.5); EOSINOPHILS % 21.5 % (0.0-7.0); HEMOGLOBIN 8.1 g/dl (12.0-16.0); LYMPHOCYTES # 0.8 10^3/ul (0.8-2.9); MEAN CORPUSCULAR HEMOGLOBIN 30.5 pg (29.0-33.0); MEAN CORPUSCULAR HGB CONC 32.4 g/dl (32.0-37.0); MONOCYTE # 0.6 10^3/ul (0.3-0.9); MONOCYTES % 11.7 % (0.0-11.0); NEUTROPHIL # 2.6 10^3/ul (1.6-7.5); PLATELET COUNT 265 10^3/UL (140-415); RED BLOOD COUNT 2.66 10^6/ul (4.20-5.40); RED CELL DISTRIBUTION WIDTH 14.5 % (11.5-14.5)
[2018-07-31] MEDS: PANTOPRAZOLE 40 MG INJ IV ×2 (06:06→18:20)
[2018-07-31 06:31] LABS: ALANINE AMINOTRANSFERASE 35 IU/L (13-69); ALBUMIN 2.2 g/dl (3.3-4.9); ALBUMIN/GLOBULIN RATIO 0.84; ALKALINE PHOSPHATASE 591 IU/L (42-121); ANION GAP 8 (8-16); ASPARTATE AMINO TRANSFERASE 56 IU/L (15-46); BLOOD UREA NITROGEN 13 mg/dl (7-20); CALCIUM 8.2 mg/dl (8.4-10.2); CARBON DIOXIDE 27 mmol/L (21-31); CHLORIDE 109 mmol/L (97-110); CREATININE 0.59 mg/dl (0.44-1.00); GLUCOSE 96 mg/dl (70-220); MAGNESIUM 1.7 mg/dl (1.7-2.5); PHOSPHORUS 3.2 mg/dl (2.5-4.9); POTASSIUM 3.5 mmol/L (3.5-5.1); SODIUM 140 mmol/L (135-144); TOTAL PROTEIN 4.8 g/dl (6.1-8.1)
[2018-07-31] MEDS: MAGNESIUM OXIDE 400 MG TAB PO ×2 (08:29→21:22)
[2018-07-31] MEDS: SERTRALINE 50 MG TAB PO (08:29)
[2018-07-31] MEDS: CEFTRIAXONE 1 GM/50 ML (PMX) 50 ML IVPB (08:29)
[2018-07-31] MEDS: LORATADINE 10 MG TAB PO (08:29)
[2018-07-31] MEDS: GABAPENTIN 300 MG CAP PO ×3 (08:29→21:22)
[2018-07-31] MEDS: MULTIVITAMINS THERAPEUTIC TAB PO (08:29)
[2018-07-31] MEDS: BISACODYL (EC) 5 MG TAB PO ×2 (08:30→18:20)
[2018-07-31] MEDS: SOD CHLORIDE 0.9% 250 ML IV* (12:20)
[2018-07-31] MEDS: DIPHENHYDRAMINE 25 MG CAP PO ×2 (12:37→21:22)
[2018-07-31 15:17] LABS: TRANSFERRIN 157 mg/dL (188-341)
[2018-07-31] MEDS: MAGNESIUM CITRATE 300 ML BTL PO (21:23)
[2018-08-01] MEDS: VANCOMYCIN 750 MG in SOD CHLORIDE 0.9% 150 ML IVPB ×2 (02:18→14:54)
[2018-08-01] MEDS: OXYCODONE/ACETAMINOPHEN (5/325) TAB PO ×3 (02:29→16:36)
[2018-08-01] MEDS: PANTOPRAZOLE 40 MG INJ IV ×2 (05:51→18:39)
[2018-08-01] MEDS: POLYETHYLENE GLYCOL 3350 119 GM POWDER PO (05:51)
[2018-08-01 07:19] LABS: ADD MAN DIFF? NO
[2018-08-01 07:24] LABS: WHITE BLOOD COUNT 6.6 10^3/ul (4.8-10.8)
[2018-08-01 07:24] LABS: HEMATOCRIT 28.3 % (37.0-47.0); HEMOGLOBIN 9.2 g/dl (12.0-16.0); MEAN CORPUSCULAR HEMOGLOBIN 30.3 pg (29.0-33.0); MEAN CORPUSCULAR HGB CONC 32.5 g/dl (32.0-37.0); MEAN CORPUSCULAR VOLUME 93.1 fl (82.0-101.0); PLATELET COUNT 306 10^3/UL (140-415); RED BLOOD COUNT 3.04 10^6/ul (4.20-5.40); RED CELL DISTRIBUTION WIDTH 15.1 % (11.5-14.5)
[2018-08-01 07:25] LABS: BASOPHILS % 0.5 % (0.0-2.0); EOSINOPHILS # 1.3 10^3/ul (0.0-0.5); EOSINOPHILS % 19.7 % (0.0-7.0); LYMPHOCYTES # 0.7 10^3/ul (0.8-2.9); MEAN PLATELET VOLUME 9.6 fl (7.4-10.4); MONOCYTE # 0.7 10^3/ul (0.3-0.9); MONOCYTES % 10.2 % (0.0-11.0); NEUTROPHIL # 3.8 10^3/ul (1.6-7.5); NEUTROPHILS % 58.4 % (39.0-77.0)
[2018-08-01] MEDS: DIPHENHYDRAMINE 25 MG CAP PO (07:53)
[2018-08-01] MEDS: BISACODYL (EC) 5 MG TAB PO (07:54)
[2018-08-01 07:59] LABS: ANION GAP 10 (8-16); BLOOD UREA NITROGEN 11 mg/dl (7-20); CALCIUM 8.2 mg/dl (8.4-10.2); CARBON DIOXIDE 24 mmol/L (21-31); CHLORIDE 112 mmol/L (97-110); CREATININE 0.56 mg/dl (0.44-1.00); GLUCOSE 94 mg/dl (70-220); MAGNESIUM 1.8 mg/dl (1.7-2.5); POTASSIUM 3.4 mmol/L (3.5-5.1); SODIUM 143 mmol/L (135-144)
[2018-08-01] MEDS: CEFTRIAXONE 1 GM/50 ML (PMX) 50 ML IVPB (09:17)
[2018-08-01] MEDS: DEXTROSE 5%-0.45% NACL 1,000 ML IV ×2 (10:44→19:00)
[2018-08-01] MEDS: POTASSIUM CHLORIDE 100 ML IVPB ×2 (11:38→16:37)
[2018-08-01] MEDS: ETOMIDATE 20 MG INJ (12:29)
[2018-08-01] MEDS: GABAPENTIN 300 MG CAP PO ×3 (13:00→21:53)
[2018-08-01] MEDS ORDERED: LABETALOL HCL 20MG INJ IV (13:30)
[2018-08-01] MEDS ORDERED: HYDROmorphONE 1 MG/5 ML IV SYRINGE IV (13:30)
[2018-08-01] MEDS ORDERED: ONDANSETRON 4 MG INJ IV (13:30)
[2018-08-01] MEDS ORDERED: FENTAnyl 50 MCG/ML VIAL IV (13:30)
[2018-08-01] MEDS: morphine 2 MG INJ IV ×2 (14:37→20:59)
[2018-08-01] MEDS: LORATADINE 10 MG TAB PO (15:00)
[2018-08-01] MEDS: MAGNESIUM OXIDE 400 MG TAB PO ×2 (15:00→21:53)
[2018-08-01] MEDS: SERTRALINE 50 MG TAB PO (15:01)
[2018-08-01] MEDS: MULTIVITAMINS THERAPEUTIC TAB PO (15:01)
[2018-08-01] MEDS: PROPOFOL 40 ML (15:07)
[2018-08-01] MEDS: LIDOCAINE 2% (SDV) 5 ML INJ (15:08)
[2018-08-01] MEDS: PHENYLephrine (100 MCG/ML) 5ML SYG (15:08)
[2018-08-01] MEDS: ACETAMINOPHEN 1000MG/100ML IV 100 ML IVPB (15:09)
[2018-08-02] MEDS: VANCOMYCIN 750 MG in SOD CHLORIDE 0.9% 150 ML IVPB ×2 (01:30→13:21)
[2018-08-02] MEDS: DEXTROSE 5%-0.45% NACL 1,000 ML IV ×2 (01:31→15:00)
[2018-08-02 05:08] LABS: ADD MAN DIFF? NO
[2018-08-02 05:19] LABS: BASOPHILS % 0.5 % (0.0-2.0); EOSINOPHILS # 1.1 10^3/ul (0.0-0.5); EOSINOPHILS % 18.4 % (0.0-7.0); HEMATOCRIT 28.2 % (37.0-47.0); HEMOGLOBIN 9.1 g/dl (12.0-16.0); LYMPHOCYTES # 0.9 10^3/ul (0.8-2.9); LYMPHOCYTES % 15.6 % (15.0-51.0); MEAN CORPUSCULAR HEMOGLOBIN 30.3 pg (29.0-33.0); MEAN CORPUSCULAR HGB CONC 32.3 g/dl (32.0-37.0); MEAN PLATELET VOLUME 9.9 fl (7.4-10.4); MONOCYTE # 0.6 10^3/ul (0.3-0.9); MONOCYTES % 10.2 % (0.0-11.0); NEUTROPHIL # 3.3 10^3/ul (1.6-7.5); NEUTROPHILS % 55.1 % (39.0-77.0); PLATELET COUNT 247 10^3/UL (140-415); RED CELL DISTRIBUTION WIDTH 14.7 % (11.5-14.5)
[2018-08-02 05:19] LABS: WHITE BLOOD COUNT 5.9 10^3/ul (4.8-10.8)
[2018-08-02] MEDS: PANTOPRAZOLE 40 MG INJ IV ×2 (05:40→17:17)
[2018-08-02 05:47] LABS: ANION GAP 10 (8-16); BLOOD UREA NITROGEN 9 mg/dl (7-20); CALCIUM 8.1 mg/dl (8.4-10.2); CARBON DIOXIDE 25 mmol/L (21-31); CHLORIDE 111 mmol/L (97-110); CREATININE 0.56 mg/dl (0.44-1.00); GLUCOSE 93 mg/dl (70-220); POTASSIUM 3.6 mmol/L (3.5-5.1); SODIUM 142 mmol/L (135-144)
[2018-08-02] MEDS: morphine 2 MG INJ IV ×3 (06:52→20:07)
[2018-08-02] MEDS: SERTRALINE 50 MG TAB PO (09:06)
[2018-08-02] MEDS: MULTIVITAMINS THERAPEUTIC TAB PO (09:06)
[2018-08-02] MEDS: MAGNESIUM OXIDE 400 MG TAB PO ×2 (09:06→21:02)
[2018-08-02] MEDS: GABAPENTIN 300 MG CAP PO ×3 (09:06→21:02)
[2018-08-02] MEDS: CEFTRIAXONE 1 GM/50 ML (PMX) 50 ML IVPB (09:06)
[2018-08-02] MEDS: LORATADINE 10 MG TAB PO (09:06)
[2018-08-02] MEDS ORDERED: VITAMIN A & D 5 GM OINT PACKET TOP (09:12)
[2018-08-02] MEDS: DIPHENHYDRAMINE 25 MG CAP PO (09:13)
[2018-08-02] MEDS: HYDROCORTISONE 1% 28 GM CR TOP ×2 (14:31→21:03)
[2018-08-02] MEDS: OXYCODONE/ACETAMINOPHEN (5/325) TAB PO (17:17)
[2018-08-03] MEDS: DEXTROSE 5%-0.45% NACL 1,000 ML IV ×2 (01:36→11:00)
[2018-08-03] MEDS: VANCOMYCIN 750 MG in SOD CHLORIDE 0.9% 150 ML IVPB ×2 (01:36→13:52)
[2018-08-03 05:45] LABS: ADD MAN DIFF? NO
[2018-08-03 05:57] LABS: WHITE BLOOD COUNT 4.8 10^3/ul (4.8-10.8)
[2018-08-03 05:57] LABS: BASOPHILS % 0.8 % (0.0-2.0); EOSINOPHILS # 0.8 10^3/ul (0.0-0.5); EOSINOPHILS % 17.1 % (0.0-7.0); HEMATOCRIT 26.1 % (37.0-47.0); HEMOGLOBIN 8.4 g/dl (12.0-16.0); LYMPHOCYTES # 0.7 10^3/ul (0.8-2.9); LYMPHOCYTES % 15.6 % (15.0-51.0); MEAN CORPUSCULAR HEMOGLOBIN 30.3 pg (29.0-33.0); MEAN CORPUSCULAR HGB CONC 32.2 g/dl (32.0-37.0); MEAN CORPUSCULAR VOLUME 94.2 fl (82.0-101.0); MEAN PLATELET VOLUME 9.5 fl (7.4-10.4); MONOCYTE # 0.6 10^3/ul (0.3-0.9); NEUTROPHIL # 2.6 10^3/ul (1.6-7.5); NEUTROPHILS % 54.3 % (39.0-77.0); PLATELET COUNT 250 10^3/UL (140-415); RED BLOOD COUNT 2.77 10^6/ul (4.20-5.40); RED CELL DISTRIBUTION WIDTH 14.4 % (11.5-14.5)
[2018-08-03] MEDS: PANTOPRAZOLE 40 MG INJ IV ×2 (06:15→17:35)
[2018-08-03] MEDS: morphine 2 MG INJ IV ×5 (06:15→23:19)
[2018-08-03] MEDS: CEFTRIAXONE 1 GM/50 ML (PMX) 50 ML IVPB (08:54)
[2018-08-03] MEDS: MULTIVITAMINS THERAPEUTIC TAB PO (08:54)
[2018-08-03] MEDS: GABAPENTIN 300 MG CAP PO ×3 (08:55→20:53)
[2018-08-03] MEDS: DIPHENHYDRAMINE 25 MG CAP PO (08:55)
[2018-08-03] MEDS: SERTRALINE 50 MG TAB PO (08:55)
[2018-08-03] MEDS: LORATADINE 10 MG TAB PO (08:55)
[2018-08-03] MEDS: MAGNESIUM OXIDE 400 MG TAB PO ×2 (08:55→20:53)
[2018-08-03] MEDS: HYDROCORTISONE 1% 28 GM CR TOP ×2 (08:58→20:53)
[2018-08-03 12:56] LABS: GAMMA GLUTAMYL TRANSPEPTIDASE 494 IU/L (0-50)
[2018-08-03 13:02] LABS: VANCOMYCIN,TROUGH 16.2 ug/ml (10.0-20.0)
[2018-08-03 13:33] LABS: ALPHA FETOPROTEIN 1.49 IU/L (0.00-7.21)
[2018-08-03] MEDS: ALTEPLASE (CATHFLO) 2 MG INJ CATHETER (17:58)
[2018-08-04] MEDS: morphine 2 MG INJ IV ×5 (03:45→20:20)
[2018-08-04] MEDS ORDERED: VANCOMYCIN 500MG/NS (PMX) 100 ML IVPB (04:00)
[2018-08-04] MEDS: PANTOPRAZOLE 40 MG INJ IV ×2 (05:49→17:30)
[2018-08-04 06:32] LABS: ADD MAN DIFF? NO; BASOPHILS % 0.7 % (0.0-2.0); EOSINOPHILS # 0.6 10^3/ul (0.0-0.5); EOSINOPHILS % 14.2 % (0.0-7.0); HEMATOCRIT 25.9 % (37.0-47.0); HEMOGLOBIN 8.3 g/dl (12.0-16.0); LYMPHOCYTES # 0.8 10^3/ul (0.8-2.9); LYMPHOCYTES % 16.8 % (15.0-51.0); MEAN CORPUSCULAR HEMOGLOBIN 30.6 pg (29.0-33.0); MEAN CORPUSCULAR VOLUME 95.6 fl (82.0-101.0); MEAN PLATELET VOLUME 9.4 fl (7.4-10.4); MONOCYTE # 0.6 10^3/ul (0.3-0.9); MONOCYTES % 13.9 % (0.0-11.0); NEUTROPHIL # 2.5 10^3/ul (1.6-7.5); NEUTROPHILS % 54.2 % (39.0-77.0); PLATELET COUNT 229 10^3/UL (140-415); RED BLOOD COUNT 2.71 10^6/ul (4.20-5.40); RED CELL DISTRIBUTION WIDTH 14.2 % (11.5-14.5)
[2018-08-04 06:32] LABS: WHITE BLOOD COUNT 4.5 10^3/ul (4.8-10.8)
[2018-08-04 07:03] LABS: ALANINE AMINOTRANSFERASE 25 IU/L (13-69); ALBUMIN 2.4 g/dl (3.3-4.9); ALKALINE PHOSPHATASE 492 IU/L (42-121); ANION GAP 8 (8-16); ASPARTATE AMINO TRANSFERASE 34 IU/L (15-46); BLOOD UREA NITROGEN 11 mg/dl (7-20); CALCIUM 7.9 mg/dl (8.4-10.2); CARBON DIOXIDE 27 mmol/L (21-31); CHLORIDE 113 mmol/L (97-110); CREATININE 0.59 mg/dl (0.44-1.00); GLUCOSE 90 mg/dl (70-220); POTASSIUM 3.6 mmol/L (3.5-5.1); SODIUM 144 mmol/L (135-144); TOTAL PROTEIN 4.8 g/dl (6.1-8.1)
[2018-08-04] MEDS: CEFTRIAXONE 1 GM/50 ML (PMX) 50 ML IVPB (08:20)
[2018-08-04] MEDS: GABAPENTIN 300 MG CAP PO ×3 (08:21→20:19)
[2018-08-04] MEDS: LORATADINE 10 MG TAB PO (08:21)
[2018-08-04] MEDS: MAGNESIUM OXIDE 400 MG TAB PO ×2 (08:21→20:19)
[2018-08-04] MEDS: MULTIVITAMINS THERAPEUTIC TAB PO (08:21)
[2018-08-04] MEDS: SERTRALINE 50 MG TAB PO (08:21)
[2018-08-04] MEDS: HYDROCORTISONE 1% 28 GM CR TOP ×2 (08:25→20:20)
[2018-08-04] MEDS: OXYCODONE/ACETAMINOPHEN (5/325) TAB PO (14:57)
[2018-08-04] MEDS: DIPHENHYDRAMINE 25 MG CAP PO (17:31)
[2018-08-05] MEDS: morphine 2 MG INJ IV ×3 (00:44→10:02)
[2018-08-05] MEDS: PANTOPRAZOLE 40 MG INJ IV ×2 (05:41→17:38)
[2018-08-05] MEDS: LORATADINE 10 MG TAB PO (10:01)
[2018-08-05] MEDS: CEFTRIAXONE 1 GM/50 ML (PMX) 50 ML IVPB (10:01)
[2018-08-05] MEDS: HYDROCORTISONE 1% 28 GM CR TOP ×2 (10:02→21:03)
[2018-08-05] MEDS: MULTIVITAMINS THERAPEUTIC TAB PO (10:02)
[2018-08-05] MEDS: MAGNESIUM OXIDE 400 MG TAB PO ×2 (10:02→21:03)
[2018-08-05] MEDS: GABAPENTIN 300 MG CAP PO ×3 (10:02→21:03)
[2018-08-05] MEDS: SERTRALINE 50 MG TAB PO (10:02)
[2018-08-05] MEDS: LOPERAMIDE 2 MG CAP PO (10:30)
[2018-08-05] MEDS: OXYCODONE/ACETAMINOPHEN (5/325) TAB PO ×2 (14:23→21:03)
[2018-08-05] MEDS: INDOMETHACIN 50 MG SUPP PR (16:00)
[2018-08-06] MEDS: PANTOPRAZOLE 40 MG INJ IV ×2 (06:22→17:45)
[2018-08-06 07:05] LABS: ADD MAN DIFF? NO
[2018-08-06 07:11] LABS: ABNORMAL IP MESSAGE 1; BASOPHILS % 0.4 % (0.0-2.0); EOSINOPHILS # 0.3 10^3/ul (0.0-0.5); EOSINOPHILS % 6.1 % (0.0-7.0); HEMATOCRIT 14.4 % (37.0-47.0); LYMPHOCYTES # 1.1 10^3/ul (0.8-2.9); LYMPHOCYTES % 19.4 % (15.0-51.0); MEAN CORPUSCULAR HEMOGLOBIN 30.1 pg (29.0-33.0); MEAN CORPUSCULAR HGB CONC 31.9 g/dl (32.0-37.0); MEAN CORPUSCULAR VOLUME 94.1 fl (82.0-101.0); MEAN PLATELET VOLUME 9.8 fl (7.4-10.4); MONOCYTE # 1.2 10^3/ul (0.3-0.9); MONOCYTES % 22.6 % (0.0-11.0); NEUTROPHIL # 2.8 10^3/ul (1.6-7.5); NEUTROPHILS % 51.3 % (39.0-77.0); PLATELET COUNT 267 10^3/UL (140-415); RED BLOOD COUNT 1.53 10^6/ul (4.20-5.40); RED CELL DISTRIBUTION WIDTH 14.2 % (11.5-14.5)
[2018-08-06 07:11] LABS: WHITE BLOOD COUNT 5.4 10^3/ul (4.8-10.8)
[2018-08-06 07:19] LABS: POSITIVE DIFF @See below
[2018-08-06 07:23] LABS: HEMOGLOBIN 4.6 g/dl (12.0-16.0)
[2018-08-06 07:29] LABS: INR 1.04; PROTIME 13.7 Sec (11.9-14.9); PT RATIO 1.1
[2018-08-06 07:49] LABS: ALANINE AMINOTRANSFERASE 43 IU/L (13-69); ALBUMIN 2.3 g/dl (3.3-4.9); ALBUMIN/GLOBULIN RATIO 0.92; ALKALINE PHOSPHATASE 836 IU/L (42-121); ANION GAP 8 (8-16); ASPARTATE AMINO TRANSFERASE 76 IU/L (15-46); BILIRUBIN,INDIRECT 1.2 mg/dl (0-1.1); BILIRUBIN,TOTAL 1.2 mg/dl (0.2-1.3); BLOOD UREA NITROGEN 14 mg/dl (7-20); CARBON DIOXIDE 28 mmol/L (21-31); CHLORIDE 110 mmol/L (97-110); CREATININE 0.58 mg/dl (0.44-1.00); GLUCOSE 95 mg/dl (70-220); LIPASE 12 U/L (23-300); POTASSIUM 3.7 mmol/L (3.5-5.1); SODIUM 142 mmol/L (135-144); TOTAL PROTEIN 4.8 g/dl (6.1-8.1)
[2018-08-06 08:05] LABS: CALCIUM 8.1 mg/dl (8.4-10.2)
[2018-08-06 08:20] LABS: HEMOGLOBIN 7.2 g/dl (12.0-16.0)
[2018-08-06] MEDS: OXYCODONE/ACETAMINOPHEN (5/325) TAB PO (08:25)
[2018-08-06] MEDS: SERTRALINE 50 MG TAB PO (08:25)
[2018-08-06] MEDS: LORATADINE 10 MG TAB PO (08:25)
[2018-08-06] MEDS: MULTIVITAMINS THERAPEUTIC TAB PO (08:25)
[2018-08-06] MEDS: MAGNESIUM OXIDE 400 MG TAB PO ×2 (08:25→20:57)
[2018-08-06] MEDS: GABAPENTIN 300 MG CAP PO ×3 (08:25→20:57)
[2018-08-06] MEDS: CEFTRIAXONE 1 GM/50 ML (PMX) 50 ML IVPB (08:26)
[2018-08-06] MEDS: HYDROCORTISONE 1% 28 GM CR TOP ×2 (08:28→21:02)
[2018-08-06] MEDS: oxyCODONE (CR) 10 MG TAB [oxyCONTIN] PO ×2 (12:35→21:02)
[2018-08-06] MEDS ORDERED: FENTAnyl 50 MCG/ML VIAL (15:18)
[2018-08-06] MEDS ORDERED: MIDAZOLAM 1 MG/ML 2 ML INJ (15:18)
[2018-08-06] MEDS ORDERED: LABETALOL HCL 20MG INJ IV (15:30)
[2018-08-06] MEDS ORDERED: hydrALAzine 20 MG INJ IV (15:30)
[2018-08-06] MEDS ORDERED: ONDANSETRON 4 MG INJ IV ×2 (15:30→16:30)
[2018-08-06] MEDS ORDERED: MEPERIDINE 25 MG INJ IV ×2 (15:30→16:30)
[2018-08-06] MEDS ORDERED: FENTAnyl 50 MCG/ML VIAL IV ×2 (15:30→16:30)
[2018-08-06] MEDS ORDERED: HYDROmorphONE 1 MG/5 ML IV SYRINGE IV ×4 (15:30→16:30)
[2018-08-06] MEDS ORDERED: DIPHENHYDRAMINE 50 MG INJ IV ×2 (15:30→16:30)
[2018-08-06] MEDS: INDOMETHACIN 50 MG SUPP PR (16:00)
[2018-08-06] MEDS ORDERED: ROCURONIUM 50 MG INJ (16:01)
[2018-08-06] MEDS ORDERED: ETOMIDATE 20 MG INJ (16:01)
[2018-08-06] MEDS ORDERED: LIDOCAINE 2% (SDV) 5 ML INJ (16:01)
[2018-08-06] MEDS ORDERED: NEOSTIGMINE 3 MG/3 ML SYRINGE (16:01)
[2018-08-06] MEDS ORDERED: GLYCOPYRROLATE 0.4 MG INJ (16:01)
[2018-08-06] MEDS ORDERED: CEFAZOLIN 1 GM INJ (16:01)
[2018-08-06] MEDS ORDERED: ONDANSETRON 4 MG INJ (16:02)
[2018-08-07] MEDS: OXYCODONE/ACETAMINOPHEN (5/325) TAB PO ×2 (04:56→11:45)
[2018-08-07] MEDS: PANTOPRAZOLE 40 MG INJ IV ×2 (05:28→17:14)
[2018-08-07] MEDS: SERTRALINE 50 MG TAB PO (08:41)
[2018-08-07] MEDS: MULTIVITAMINS THERAPEUTIC TAB PO (08:41)
[2018-08-07] MEDS: GABAPENTIN 300 MG CAP PO ×3 (08:42→20:07)
[2018-08-07] MEDS: CEFTRIAXONE 1 GM/50 ML (PMX) 50 ML IVPB (08:42)
[2018-08-07] MEDS: LORATADINE 10 MG TAB PO (08:42)
[2018-08-07] MEDS: oxyCODONE (CR) 10 MG TAB [oxyCONTIN] PO ×2 (08:42→20:07)
[2018-08-07] MEDS: MAGNESIUM OXIDE 400 MG TAB PO ×2 (08:42→20:07)
[2018-08-07] MEDS: HYDROCORTISONE 1% 28 GM CR TOP ×2 (08:43→20:08)
[2018-08-07] MEDS ORDERED: CEPASTAT LOZENGE MT (12:00)
[2018-08-07 17:02] LABS: ALKALINE PHOSPHATASE 639 U/L (33-130); BONE ISOENZYMES 42 % (28-66); INTESTINAL ISOENZYMES 0 % (1-24); LIVER ISOENZYMES 58 % (25-69); PLACENTAL ISOENZYMES 0 % (0)
[2018-08-08] MEDS: OXYCODONE/ACETAMINOPHEN (5/325) TAB PO ×3 (00:53→23:41)
[2018-08-08] MEDS: PANTOPRAZOLE 40 MG INJ IV ×2 (05:11→17:26)
[2018-08-08 06:10] LABS: ADD MAN DIFF? NO
[2018-08-08 06:13] LABS: WHITE BLOOD COUNT 4.2 10^3/ul (4.8-10.8)
[2018-08-08 06:13] LABS: ABNORMAL IP MESSAGE 1; BASOPHILS % 0.2 % (0.0-2.0); EOSINOPHILS # 0.2 10^3/ul (0.0-0.5); EOSINOPHILS % 5.5 % (0.0-7.0); HEMATOCRIT 19.3 % (37.0-47.0); LYMPHOCYTES % 22.9 % (15.0-51.0); MEAN CORPUSCULAR HEMOGLOBIN 31.2 pg (29.0-33.0); MEAN CORPUSCULAR HGB CONC 32.1 g/dl (32.0-37.0); MEAN PLATELET VOLUME 9.6 fl (7.4-10.4); MONOCYTE # 0.8 10^3/ul (0.3-0.9); MONOCYTES % 18.9 % (0.0-11.0); NEUTROPHIL # 2.2 10^3/ul (1.6-7.5); PLATELET COUNT 225 10^3/UL (140-415); RED BLOOD COUNT 1.99 10^6/ul (4.20-5.40); RED CELL DISTRIBUTION WIDTH 14.4 % (11.5-14.5)
[2018-08-08 06:35] LABS: ALANINE AMINOTRANSFERASE 57 IU/L (13-69); ALBUMIN 2.4 g/dl (3.3-4.9); ALBUMIN/GLOBULIN RATIO 0.85; ALKALINE PHOSPHATASE 1121 IU/L (42-121); ANION GAP 6 (8-16); ASPARTATE AMINO TRANSFERASE 72 IU/L (15-46); BILIRUBIN,INDIRECT 0.9 mg/dl (0-1.1); BILIRUBIN,TOTAL 0.9 mg/dl (0.2-1.3); BLOOD UREA NITROGEN 15 mg/dl (7-20); CALCIUM 8.1 mg/dl (8.4-10.2); CARBON DIOXIDE 31 mmol/L (21-31); CHLORIDE 107 mmol/L (97-110); CREATININE 0.61 mg/dl (0.44-1.00); GLUCOSE 96 mg/dl (70-220); POTASSIUM 3.6 mmol/L (3.5-5.1); SODIUM 140 mmol/L (135-144); TOTAL PROTEIN 5.2 g/dl (6.1-8.1)
[2018-08-08 06:40] LABS: POSITIVE DIFF @See below
[2018-08-08 06:41] LABS: HEMOGLOBIN 6.2 g/dl (12.0-16.0)
[2018-08-08 07:43] LABS: HEMATOCRIT 19.9 % (37.0-47.0)
[2018-08-08 08:01] LABS: HEMOGLOBIN 6.2 g/dl (12.0-16.0)
[2018-08-08] MEDS: SERTRALINE 50 MG TAB PO (08:50)
[2018-08-08] MEDS: oxyCODONE (CR) 10 MG TAB [oxyCONTIN] PO ×2 (08:50→20:39)
[2018-08-08] MEDS: LORATADINE 10 MG TAB PO (08:50)
[2018-08-08] MEDS: MAGNESIUM OXIDE 400 MG TAB PO ×2 (08:50→20:39)
[2018-08-08] MEDS: CEFTRIAXONE 1 GM/50 ML (PMX) 50 ML IVPB (08:50)
[2018-08-08] MEDS: GABAPENTIN 300 MG CAP PO ×3 (08:50→20:39)
[2018-08-08] MEDS: MULTIVITAMINS THERAPEUTIC TAB PO (08:54)
[2018-08-08] MEDS: HYDROCORTISONE 1% 28 GM CR TOP ×2 (08:54→20:40)
[2018-08-08 12:13] LABS: AHG CROSSMATCH 1 2
[2018-08-09] MEDS: NITROGLYCERIN (SL) 0.4 MG TAB SL ×2 (00:15→10:42)
[2018-08-09 01:41] LABS: TROPONIN-I 0.167 ng/ml (0.000-0.120)
[2018-08-09] MEDS: PANTOPRAZOLE 40 MG INJ IV ×2 (05:52→17:20)
[2018-08-09 06:19] LABS: HEMATOCRIT 25.6 % (37.0-47.0); HEMOGLOBIN 8.3 g/dl (12.0-16.0)
[2018-08-09 06:47] LABS: LIPASE 770 U/L (23-300)
[2018-08-09 07:04] LABS: TROPONIN-I 0.175 ng/ml (0.000-0.120)
[2018-08-09] MEDS: MAGNESIUM OXIDE 400 MG TAB PO ×2 (08:51→20:21)
[2018-08-09] MEDS: GABAPENTIN 300 MG CAP PO ×3 (08:51→20:21)
[2018-08-09] MEDS: CEFTRIAXONE 1 GM/50 ML (PMX) 50 ML IVPB (08:51)
[2018-08-09] MEDS: MULTIVITAMINS THERAPEUTIC TAB PO (08:51)
[2018-08-09] MEDS: LORATADINE 10 MG TAB PO (08:51)
[2018-08-09] MEDS: SERTRALINE 50 MG TAB PO (08:51)
[2018-08-09] MEDS: oxyCODONE (CR) 10 MG TAB [oxyCONTIN] PO ×2 (08:51→20:21)
[2018-08-09] MEDS: HYDROCORTISONE 1% 28 GM CR TOP ×2 (08:52→20:22)
[2018-08-09] MEDS: ACETAMINOPHEN 325 MG TAB PO ×2 (10:54→17:20)
[2018-08-09 12:14] LABS: TROPONIN-I 0.114 ng/ml (0.000-0.120)
[2018-08-09] MEDS: LORAZEPAM 2 MG INJ IV (15:11)
[2018-08-09] MEDS: SOD CHLORIDE 0.9% 100 ML (17:00)
[2018-08-09] MEDS: IOHEXOL 100 ML (17:00)
[2018-08-09] MEDS: SOD CHLORIDE 0.45% 1,000 ML IV (17:20)
[2018-08-10] MEDS: SOD CHLORIDE 0.45% 1,000 ML IV ×3 (00:01→08:25)
[2018-08-10] MEDS: ALTEPLASE (CATHFLO) 2 MG INJ CATHETER (03:57)
[2018-08-10 05:16] LABS: ADD MAN DIFF? NO
[2018-08-10 05:19] LABS: ABNORMAL IP MESSAGE 1; BASOPHILS % 0.5 % (0.0-2.0); EOSINOPHILS # 0.2 10^3/ul (0.0-0.5); HEMATOCRIT 22.5 % (37.0-47.0); HEMOGLOBIN 7.6 g/dl (12.0-16.0); LYMPHOCYTES # 0.6 10^3/ul (0.8-2.9); LYMPHOCYTES % 10.3 % (15.0-51.0); MEAN CORPUSCULAR HEMOGLOBIN 30.5 pg (29.0-33.0); MEAN CORPUSCULAR HGB CONC 33.8 g/dl (32.0-37.0); MEAN CORPUSCULAR VOLUME 90.4 fl (82.0-101.0); MEAN PLATELET VOLUME 9.6 fl (7.4-10.4); MONOCYTE # 0.6 10^3/ul (0.3-0.9); MONOCYTES % 11.5 % (0.0-11.0); NEUTROPHILS % 72.3 % (39.0-77.0); PLATELET COUNT 195 10^3/UL (140-415); RED BLOOD COUNT 2.49 10^6/ul (4.20-5.40); RED CELL DISTRIBUTION WIDTH 14.7 % (11.5-14.5)
[2018-08-10 05:19] LABS: WHITE BLOOD COUNT 5.6 10^3/ul (4.8-10.8)
[2018-08-10 05:25] LABS: POSITIVE DIFF @See below
[2018-08-10] MEDS: PANTOPRAZOLE 40 MG INJ IV ×2 (05:37→17:30)
[2018-08-10 05:41] LABS: ALANINE AMINOTRANSFERASE 77 IU/L (13-69); ALBUMIN 2.5 g/dl (3.3-4.9); ALBUMIN/GLOBULIN RATIO 0.89; ALKALINE PHOSPHATASE 1283 IU/L (42-121); ANION GAP 8 (8-16); ASPARTATE AMINO TRANSFERASE 157 IU/L (15-46); BILIRUBIN,INDIRECT 2.7 mg/dl (0-1.1); BILIRUBIN,TOTAL 4.5 mg/dl (0.2-1.3); BLOOD UREA NITROGEN 15 mg/dl (7-20); CALCIUM 8.4 mg/dl (8.4-10.2); CARBON DIOXIDE 28 mmol/L (21-31); CHLORIDE 109 mmol/L (97-110); CREATININE 0.55 mg/dl (0.44-1.00); GLUCOSE 92 mg/dl (70-220); POTASSIUM 3.8 mmol/L (3.5-5.1); SODIUM 141 mmol/L (135-144); TOTAL PROTEIN 5.3 g/dl (6.1-8.1)
[2018-08-10 06:20] LABS: LIPASE 93 U/L (23-300)
[2018-08-10] MEDS: GABAPENTIN 300 MG CAP PO ×3 (08:25→21:30)
[2018-08-10] MEDS: LORATADINE 10 MG TAB PO (08:25)
[2018-08-10] MEDS: MULTIVITAMINS THERAPEUTIC TAB PO (08:25)
[2018-08-10] MEDS: SERTRALINE 50 MG TAB PO (08:25)
[2018-08-10] MEDS: MAGNESIUM OXIDE 400 MG TAB PO ×2 (08:25→21:30)
[2018-08-10] MEDS: oxyCODONE (CR) 10 MG TAB [oxyCONTIN] PO ×2 (08:25→21:31)
[2018-08-10] MEDS: HYDROCORTISONE 1% 28 GM CR TOP ×2 (08:27→21:34)
[2018-08-10] MEDS: OXYCODONE/ACETAMINOPHEN (5/325) TAB PO ×2 (17:36→23:22)
[2018-08-11] MEDS: PANTOPRAZOLE 40 MG INJ IV ×2 (05:42→18:16)
[2018-08-11] MEDS: OXYCODONE/ACETAMINOPHEN (5/325) TAB PO (05:50)
[2018-08-11] MEDS: GABAPENTIN 300 MG CAP PO ×3 (08:32→20:25)
[2018-08-11] MEDS: LORATADINE 10 MG TAB PO (08:32)
[2018-08-11] MEDS: MAGNESIUM OXIDE 400 MG TAB PO ×2 (08:32→20:25)
[2018-08-11] MEDS: MULTIVITAMINS THERAPEUTIC TAB PO (08:32)
[2018-08-11] MEDS: SERTRALINE 50 MG TAB PO (08:32)
[2018-08-11] MEDS: oxyCODONE (CR) 10 MG TAB [oxyCONTIN] PO ×2 (08:33→20:25)
[2018-08-11] MEDS: HYDROCORTISONE 1% 28 GM CR TOP ×2 (08:36→20:26)
[2018-08-11 11:56] LABS: INR 0.96; PROTIME 12.9 Sec (11.9-14.9)
[2018-08-11 12:29] LABS: HEPATITIS B SURFACE ANTIGEN NEGATIVE (NEGATIVE)
[2018-08-11 12:46] LABS: HEPATITIS C VIRAL ANTIBODY NEGATIVE (NEGATIVE)
[2018-08-11 12:47] LABS: HEPATITIS B SURFACE ANTIBODY NEGATIVE (NEGATIVE)
[2018-08-11] MEDS: LORAZEPAM 0.5 MG TAB PO (14:06)
[2018-08-12] MEDS: ONDANSETRON 4 MG INJ IV (03:49)
[2018-08-12] MEDS: PANTOPRAZOLE 40 MG INJ IV ×2 (05:48→18:37)
[2018-08-12 06:05] LABS: ADD MAN DIFF? NO
[2018-08-12 06:17] LABS: BASOPHILS % 0.6 % (0.0-2.0); EOSINOPHILS # 0.3 10^3/ul (0.0-0.5); EOSINOPHILS % 6.3 % (0.0-7.0); HEMATOCRIT 22.8 % (37.0-47.0); HEMOGLOBIN 7.4 g/dl (12.0-16.0); LYMPHOCYTES # 0.8 10^3/ul (0.8-2.9); LYMPHOCYTES % 15.8 % (15.0-51.0); MEAN CORPUSCULAR HEMOGLOBIN 30.5 pg (29.0-33.0); MEAN CORPUSCULAR HGB CONC 32.5 g/dl (32.0-37.0); MEAN CORPUSCULAR VOLUME 93.8 fl (82.0-101.0); MEAN PLATELET VOLUME 9.5 fl (7.4-10.4); MONOCYTE # 0.7 10^3/ul (0.3-0.9); MONOCYTES % 13.1 % (0.0-11.0); NEUTROPHIL # 3.2 10^3/ul (1.6-7.5); NEUTROPHILS % 62.6 % (39.0-77.0); PLATELET COUNT 206 10^3/UL (140-415); RED BLOOD COUNT 2.43 10^6/ul (4.20-5.40); RED CELL DISTRIBUTION WIDTH 14.5 % (11.5-14.5); RETICULOCYTE COUNT # 0.004 X10^6 (0.020-0.110); RETICULOCYTE COUNT % 0.2 % (0.5-1.5); RETICULOCYTE RBC 2.43
[2018-08-12 06:17] LABS: WHITE BLOOD COUNT 5.1 10^3/ul (4.8-10.8)
[2018-08-12 07:15] LABS: ANION GAP 9 (8-16); BLOOD UREA NITROGEN 13 mg/dl (7-20); CALCIUM 8.4 mg/dl (8.4-10.2); CARBON DIOXIDE 28 mmol/L (21-31); CHLORIDE 107 mmol/L (97-110); CREATININE 0.67 mg/dl (0.44-1.00); GLUCOSE 99 mg/dl (70-220); POTASSIUM 3.8 mmol/L (3.5-5.1); SODIUM 140 mmol/L (135-144)
[2018-08-12 08:36] LABS: BILIRUBIN,INDIRECT 1.3 mg/dl (0-1.1); BILIRUBIN,TOTAL 1.3 mg/dl (0.2-1.3)
[2018-08-12 09:04] LABS: LACTATE DEHYDROGENASE 2713 IU/L (313-618)
[2018-08-12] MEDS: MULTIVITAMINS THERAPEUTIC TAB PO (09:41)
[2018-08-12] MEDS: MAGNESIUM OXIDE 400 MG TAB PO ×2 (09:41→21:02)
[2018-08-12] MEDS: GABAPENTIN 300 MG CAP PO ×3 (09:41→21:02)
[2018-08-12] MEDS: LORATADINE 10 MG TAB PO (09:41)
[2018-08-12] MEDS: SERTRALINE 50 MG TAB PO (09:41)
[2018-08-12] MEDS: oxyCODONE (CR) 10 MG TAB [oxyCONTIN] PO ×2 (09:42→21:02)
[2018-08-12] MEDS: HYDROCORTISONE 1% 28 GM CR TOP ×2 (09:44→21:03)
[2018-08-12 11:42] LABS: MITOCHONDRIAL TB NEGATIVE (NEGATIVE); SMOOTH MUSCLE AB SCREEN NEGATIVE (NEGATIVE)
[2018-08-12 13:18] LABS: ANA SCREEN NEGATIVE (NEGATIVE)
[2018-08-12] MEDS: LORAZEPAM 0.5 MG TAB PO (16:48)
[2018-08-12 17:04] LABS: ALANINE AMINOTRANSFERASE 58 IU/L (13-69); ALBUMIN 2.7 g/dl (3.3-4.9); ALKALINE PHOSPHATASE 1235 IU/L (42-121); ANION GAP 6 (8-16); ASPARTATE AMINO TRANSFERASE 67 IU/L (15-46); BILIRUBIN,INDIRECT 1.3 mg/dl (0-1.1); BILIRUBIN,TOTAL 1.3 mg/dl (0.2-1.3); BLOOD UREA NITROGEN 12 mg/dl (7-20); CALCIUM 8.2 mg/dl (8.4-10.2); CARBON DIOXIDE 31 mmol/L (21-31); CHLORIDE 106 mmol/L (97-110); CREATININE 0.71 mg/dl (0.44-1.00); GLUCOSE 94 mg/dl (70-220); POTASSIUM 3.9 mmol/L (3.5-5.1); SODIUM 139 mmol/L (135-144); TOTAL PROTEIN 5.7 g/dl (6.1-8.1)
[2018-08-12 18:31] LABS: HAPTOGLOBIN <15 mg/dL (43-212)
[2018-08-13] MEDS: PANTOPRAZOLE 40 MG INJ IV ×2 (05:18→17:23)
[2018-08-13 06:31] LABS: ADD MAN DIFF? NO
[2018-08-13 07:18] LABS: MAGNESIUM 1.9 mg/dl (1.7-2.5)
[2018-08-13 07:18] LABS: PHOSPHORUS 3.7 mg/dl (2.5-4.9)
[2018-08-13 07:24] LABS: ALANINE AMINOTRANSFERASE 50 IU/L (13-69); ALBUMIN 2.5 g/dl (3.3-4.9); ALBUMIN/GLOBULIN RATIO 0.86; ALKALINE PHOSPHATASE 1093 IU/L (42-121); ANION GAP 7 (8-16); ASPARTATE AMINO TRANSFERASE 56 IU/L (15-46); BILIRUBIN,INDIRECT 1.2 mg/dl (0-1.1); BILIRUBIN,TOTAL 1.2 mg/dl (0.2-1.3); BLOOD UREA NITROGEN 12 mg/dl (7-20); CALCIUM 8.2 mg/dl (8.4-10.2); CARBON DIOXIDE 31 mmol/L (21-31); CHLORIDE 106 mmol/L (97-110); CREATININE 0.75 mg/dl (0.44-1.00); GLUCOSE 102 mg/dl (70-220); POTASSIUM 3.8 mmol/L (3.5-5.1); SODIUM 140 mmol/L (135-144); TOTAL PROTEIN 5.4 g/dl (6.1-8.1)
[2018-08-13] MEDS: GABAPENTIN 300 MG CAP PO ×3 (08:30→20:20)
[2018-08-13] MEDS: SERTRALINE 50 MG TAB PO (08:30)
[2018-08-13] MEDS: oxyCODONE (CR) 10 MG TAB [oxyCONTIN] PO ×2 (08:30→20:24)
[2018-08-13] MEDS: MULTIVITAMINS THERAPEUTIC TAB PO (08:30)
[2018-08-13] MEDS: MAGNESIUM OXIDE 400 MG TAB PO ×2 (08:31→20:20)
[2018-08-13] MEDS: LORATADINE 10 MG TAB PO (08:31)
[2018-08-13] MEDS: HYDROCORTISONE 1% 28 GM CR TOP ×2 (08:31→20:22)
[2018-08-13 09:20] LABS: WHITE BLOOD COUNT 6.8 10^3/ul (4.8-10.8)
[2018-08-13 09:20] LABS: ABNORMAL IP MESSAGE 1; BASOPHILS % 0.3 % (0.0-2.0); EOSINOPHILS # 0.4 10^3/ul (0.0-0.5); EOSINOPHILS % 5.6 % (0.0-7.0); HEMATOCRIT 21.4 % (37.0-47.0); LYMPHOCYTES # 1.2 10^3/ul (0.8-2.9); LYMPHOCYTES % 17.3 % (15.0-51.0); MEAN CORPUSCULAR HEMOGLOBIN 30.2 pg (29.0-33.0); MEAN CORPUSCULAR HGB CONC 31.8 g/dl (32.0-37.0); MEAN CORPUSCULAR VOLUME 95.1 fl (82.0-101.0); MEAN PLATELET VOLUME 9.6 fl (7.4-10.4); MONOCYTE # 0.9 10^3/ul (0.3-0.9); MONOCYTES % 12.9 % (0.0-11.0); NEUTROPHIL # 4.2 10^3/ul (1.6-7.5); NEUTROPHILS % 61.6 % (39.0-77.0); PLATELET COUNT 233 10^3/UL (140-415); RED BLOOD COUNT 2.25 10^6/ul (4.20-5.40); RED CELL DISTRIBUTION WIDTH 14.5 % (11.5-14.5)
[2018-08-13 09:24] LABS: POSITIVE DIFF @See below
[2018-08-13 09:29] LABS: HEMOGLOBIN 6.8 g/dl (12.0-16.0)
[2018-08-13 09:30] LABS: PATH REVIEW? YES
[2018-08-13 10:22] LABS: ANISOCYTOSIS 1+ (0-0); BAND NEUTROPHILS #M 0.4 10^3/ul (0.0-0.6); BAND NEUTROPHILS % (M) 7 % (0-4); EOSINOPHILS % (M) 6 % (0-7); HYPOCHROMASIA 1+ (0-0); LYMPHOCYTES #M 1.2 10^3/ul (0.8-2.9); LYMPHOCYTES % (M) 19 % (15-51); METAMYELOCYTES %M 1 % (0-0); MICROCYTOSIS 1+ (0-0); MONOCYTE #M 0.8 10^3/ul (0.3-0.9); MONOCYTES % (M) 13 % (0-11); OVALOCYTES 1+ (0-0); PLATELET ESTIMATE NORMAL; POIKILOCYTOSIS 1+ (0-0); POLYCHROMASIA 1+ (0-0); PROMYELOCYTES % (M) 1 % (0-0); REACTIVE LYMPHOCYTES #M 0.2 10^3/ul (0.0-0.0); REACTIVE LYMPHOCYTES% (M) 4 % (0-0); SEG NEUT #M 3.4 10^3/ul (1.6-7.5); SEGMENTED NEUTROPHILS (M) % 49 % (39-77); SMUDGE%M 1 % (0-0)
[2018-08-13 17:26] LABS: AHG CROSSMATCH 1 2
[2018-08-13] MEDS: OXYCODONE/ACETAMINOPHEN (5/325) TAB PO (20:25)
[2018-08-13] MEDS: HALOPERIDOL 5 MG INJ IM (22:33)
[2018-08-14] MEDS: PANTOPRAZOLE 40 MG INJ IV ×2 (06:32→17:26)
[2018-08-14] MEDS: MULTIVITAMINS THERAPEUTIC TAB PO (08:15)
[2018-08-14] MEDS: oxyCODONE (CR) 10 MG TAB [oxyCONTIN] PO ×2 (08:15→21:00)
[2018-08-14] MEDS: MAGNESIUM OXIDE 400 MG TAB PO ×2 (08:15→21:07)
[2018-08-14] MEDS: SERTRALINE 50 MG TAB PO (08:15)
[2018-08-14] MEDS: LORATADINE 10 MG TAB PO (08:15)
[2018-08-14] MEDS: GABAPENTIN 300 MG CAP PO ×3 (08:15→21:07)
[2018-08-14] MEDS: HYDROCORTISONE 1% 28 GM CR TOP ×2 (08:16→21:00)
[2018-08-14 08:43] LABS: ADD MAN DIFF? NO
[2018-08-14 08:50] LABS: WHITE BLOOD COUNT 7.8 10^3/ul (4.8-10.8)
[2018-08-14 08:50] LABS: BASOPHIL # 0.1 10^3/ul (0.0-0.1); BASOPHILS % 0.6 % (0.0-2.0); EOSINOPHILS # 0.4 10^3/ul (0.0-0.5); EOSINOPHILS % 4.6 % (0.0-7.0); HEMATOCRIT 25.9 % (37.0-47.0); HEMOGLOBIN 8.5 g/dl (12.0-16.0); LYMPHOCYTES # 0.9 10^3/ul (0.8-2.9); LYMPHOCYTES % 11.1 % (15.0-51.0); MEAN CORPUSCULAR HGB CONC 32.8 g/dl (32.0-37.0); MEAN CORPUSCULAR VOLUME 91.5 fl (82.0-101.0); MEAN PLATELET VOLUME 9.4 fl (7.4-10.4); MONOCYTES % 12.1 % (0.0-11.0); NEUTROPHIL # 5.3 10^3/ul (1.6-7.5); NEUTROPHILS % 67.4 % (39.0-77.0); NUCLEATED RED BLOOD CELLS # 0.1 10^3/ul (0.0-0.0); NUCLEATED RED BLOOD CELLS% 0.6 /100WBC (0.0-0.0); PLATELET COUNT 267 10^3/UL (140-415); RED BLOOD COUNT 2.83 10^6/ul (4.20-5.40); RED CELL DISTRIBUTION WIDTH 14.4 % (11.5-14.5)
[2018-08-14 09:16] LABS: ALANINE AMINOTRANSFERASE 56 IU/L (13-69); ALBUMIN 2.9 g/dl (3.3-4.9); ALBUMIN/GLOBULIN RATIO 0.93; ALKALINE PHOSPHATASE 1326 IU/L (42-121); ANION GAP 7 (8-16); ASPARTATE AMINO TRANSFERASE 163 IU/L (15-46); BILIRUBIN,INDIRECT 3.2 mg/dl (0-1.1); BILIRUBIN,TOTAL 5.8 mg/dl (0.2-1.3); BLOOD UREA NITROGEN 11 mg/dl (7-20); CALCIUM 8.5 mg/dl (8.4-10.2); CARBON DIOXIDE 29 mmol/L (21-31); CHLORIDE 108 mmol/L (97-110); CREATININE 0.62 mg/dl (0.44-1.00); GLUCOSE 106 mg/dl (70-220); SODIUM 140 mmol/L (135-144)
[2018-08-14 18:02] LABS: PTH CALCIUM 8.2 mg/dL (8.6-10.4)
[2018-08-14] MEDS: SOD CHLORIDE 0.9% 100 ML (22:23)
[2018-08-14] MEDS: IOHEXOL 300MG/ML 150 ML BTL (22:23)
[2018-08-14] MEDS: OXYCODONE/ACETAMINOPHEN (5/325) TAB PO (23:28)
[2018-08-15] MEDS: PANTOPRAZOLE 40 MG INJ IV ×2 (05:17→17:23)
[2018-08-15 06:54] LABS: ABNORMAL IP MESSAGE 1; HEMATOCRIT 23.9 % (37.0-47.0); HEMOGLOBIN 7.7 g/dl (12.0-16.0); MEAN CORPUSCULAR HEMOGLOBIN 30.1 pg (29.0-33.0); MEAN CORPUSCULAR HGB CONC 32.2 g/dl (32.0-37.0); MEAN CORPUSCULAR VOLUME 93.4 fl (82.0-101.0); MEAN PLATELET VOLUME 9.1 fl (7.4-10.4); NUCLEATED RED BLOOD CELLS% 0.6 /100WBC (0.0-0.0); PLATELET COUNT 295 10^3/UL (140-415); RED BLOOD COUNT 2.56 10^6/ul (4.20-5.40); RED CELL DISTRIBUTION WIDTH 15.2 % (11.5-14.5)
[2018-08-15 06:54] LABS: WHITE BLOOD COUNT 6.9 10^3/ul (4.8-10.8)
[2018-08-15 07:02] LABS: POSITIVE DIFF @See below
[2018-08-15 07:04] LABS: ADD MAN DIFF? YES
[2018-08-15 07:21] LABS: ALANINE AMINOTRANSFERASE 58 IU/L (13-69); ALBUMIN 2.5 g/dl (3.3-4.9); ALBUMIN/GLOBULIN RATIO 0.89; ALKALINE PHOSPHATASE 1035 IU/L (42-121); ANION GAP 5 (8-16); ASPARTATE AMINO TRANSFERASE 95 IU/L (15-46); BILIRUBIN,INDIRECT 2.3 mg/dl (0-1.1); BILIRUBIN,TOTAL 2.3 mg/dl (0.2-1.3); BLOOD UREA NITROGEN 12 mg/dl (7-20); CALCIUM 8.2 mg/dl (8.4-10.2); CARBON DIOXIDE 30 mmol/L (21-31); CHLORIDE 109 mmol/L (97-110); CREATININE 0.65 mg/dl (0.44-1.00); GLUCOSE 88 mg/dl (70-220); POTASSIUM 3.8 mmol/L (3.5-5.1); SODIUM 140 mmol/L (135-144); TOTAL PROTEIN 5.3 g/dl (6.1-8.1)
[2018-08-15 08:00] LABS: PTH INTACT 19 pg/mL (14-64)
[2018-08-15 08:14] LABS: ANISOCYTOSIS 1+ (0-0); BAND NEUTROPHILS #M 0.5 10^3/ul (0.0-0.6); BAND NEUTROPHILS % (M) 8 % (0-4); BASOPHILS % (M) 1 % (0-2); BURR CELLS 1+ (0-0); EOSINOPHILS % (M) 8 % (0-7); ERYTHROBLAST% (NRBC) (M) 1 % (0-0); HYPOCHROMASIA 2+ (0-0); LYMPHOCYTES #M 1.7 10^3/ul (0.8-2.9); LYMPHOCYTES % (M) 25 % (15-51); METAMYELOCYTES #M 0.2 10^3/ul (0.0-0.0); METAMYELOCYTES %M 3 % (0-0); MICROCYTOSIS 1+ (0-0); MONOCYTE #M 1.1 10^3/ul (0.3-0.9); MONOCYTES % (M) 16 % (0-11); MYELOCYTES #M 0.2 10^3/ul (0.0-0.0); MYELOCYTES % (M) 3 % (0-0); OVALOCYTES 2+ (0-0); PLATELET ESTIMATE NORMAL; POIKILOCYTOSIS 1+ (0-0); POLYCHROMASIA 1+ (0-0); REACTIVE LYMPHOCYTES% (M) 1 % (0-0); SEG NEUT #M 2.4 10^3/ul (1.6-7.5); SEGMENTED NEUTROPHILS (M) % 35 % (39-77); SMUDGE%M 46 % (0-0)
[2018-08-15] MEDS: oxyCODONE (CR) 10 MG TAB [oxyCONTIN] PO ×2 (08:32→21:33)
[2018-08-15] MEDS: MULTIVITAMINS THERAPEUTIC TAB PO (08:32)
[2018-08-15] MEDS: GABAPENTIN 300 MG CAP PO ×3 (08:32→21:33)
[2018-08-15] MEDS: MAGNESIUM OXIDE 400 MG TAB PO ×2 (08:32→21:33)
[2018-08-15] MEDS: SERTRALINE 50 MG TAB PO (08:32)
[2018-08-15] MEDS: LORATADINE 10 MG TAB PO (08:32)
[2018-08-15] MEDS: HYDROCORTISONE 1% 28 GM CR TOP ×2 (08:32→21:36)
[2018-08-15] MEDS: SOD CHLORIDE 0.9% 500 ML (10:20)
[2018-08-15] MEDS: MIDAZOLAM 1 MG/ML 2 ML INJ (10:55)
[2018-08-15] MEDS: FENTAnyl 50 MCG/ML VIAL (10:55)
[2018-08-15] MEDS: LIDOCAINE 1% (MPF) 5 ML VIAL (11:20)
[2018-08-15] MEDS: DIPHENHYDRAMINE 25 MG CAP PO ×2 (13:27→21:32)
[2018-08-15] MEDS: OXYCODONE/ACETAMINOPHEN (5/325) TAB PO ×2 (14:17→23:55)
[2018-08-15 20:12] LABS: HAPTOGLOBIN <15 mg/dL (43-212)
[2018-08-16] MEDS: OXYCODONE/ACETAMINOPHEN (5/325) TAB PO ×3 (05:23→18:43)
[2018-08-16] MEDS: PANTOPRAZOLE 40 MG INJ IV ×2 (05:24→17:20)
[2018-08-16] MEDS: DIPHENHYDRAMINE 25 MG CAP PO ×3 (05:29→22:08)
[2018-08-16 06:11] LABS: ADD MAN DIFF? NO
[2018-08-16 06:25] LABS: WHITE BLOOD COUNT 7.6 10^3/ul (4.8-10.8)
[2018-08-16 06:25] LABS: BASOPHILS % 0.3 % (0.0-2.0); EOSINOPHILS # 0.6 10^3/ul (0.0-0.5); EOSINOPHILS % 8.4 % (0.0-7.0); HEMATOCRIT 23.2 % (37.0-47.0); HEMOGLOBIN 7.5 g/dl (12.0-16.0); LYMPHOCYTES # 1.2 10^3/ul (0.8-2.9); LYMPHOCYTES % 15.5 % (15.0-51.0); MEAN CORPUSCULAR HEMOGLOBIN 30.7 pg (29.0-33.0); MEAN CORPUSCULAR HGB CONC 32.3 g/dl (32.0-37.0); MEAN CORPUSCULAR VOLUME 95.1 fl (82.0-101.0); MEAN PLATELET VOLUME 9.2 fl (7.4-10.4); MONOCYTES % 13.3 % (0.0-11.0); NEUTROPHIL # 4.5 10^3/ul (1.6-7.5); NEUTROPHILS % 58.7 % (39.0-77.0); NUCLEATED RED BLOOD CELLS% 0.4 /100WBC (0.0-0.0); PLATELET COUNT 345 10^3/UL (140-415); RED BLOOD COUNT 2.44 10^6/ul (4.20-5.40); RED CELL DISTRIBUTION WIDTH 16.5 % (11.5-14.5)
[2018-08-16 06:40] LABS: ALANINE AMINOTRANSFERASE 47 IU/L (13-69); ALBUMIN 2.7 g/dl (3.3-4.9); ALKALINE PHOSPHATASE 926 IU/L (42-121); ANION GAP 6 (8-16); ASPARTATE AMINO TRANSFERASE 62 IU/L (15-46); BILIRUBIN,INDIRECT 1.8 mg/dl (0-1.1); BILIRUBIN,TOTAL 1.8 mg/dl (0.2-1.3); BLOOD UREA NITROGEN 13 mg/dl (7-20); CALCIUM 8.2 mg/dl (8.4-10.2); CARBON DIOXIDE 30 mmol/L (21-31); CHLORIDE 108 mmol/L (97-110); CREATININE 0.77 mg/dl (0.44-1.00); GLUCOSE 94 mg/dl (70-220); POTASSIUM 3.9 mmol/L (3.5-5.1); SODIUM 140 mmol/L (135-144); TOTAL PROTEIN 5.4 g/dl (6.1-8.1)
[2018-08-16] MEDS: oxyCODONE (CR) 10 MG TAB [oxyCONTIN] PO ×2 (09:20→22:05)
[2018-08-16] MEDS: MAGNESIUM OXIDE 400 MG TAB PO ×2 (09:20→22:05)
[2018-08-16] MEDS: LORATADINE 10 MG TAB PO (09:20)
[2018-08-16] MEDS: GABAPENTIN 300 MG CAP PO ×3 (09:20→22:05)
[2018-08-16] MEDS: MULTIVITAMINS THERAPEUTIC TAB PO (09:20)
[2018-08-16] MEDS: SERTRALINE 50 MG TAB PO (09:20)
[2018-08-16] MEDS: HYDROCORTISONE 1% 28 GM CR TOP ×2 (12:00→22:09)
[2018-08-17] MEDS: OXYCODONE/ACETAMINOPHEN (5/325) TAB PO ×2 (04:51→12:38)
[2018-08-17] MEDS: PANTOPRAZOLE 40 MG INJ IV ×2 (05:22→17:13)
[2018-08-17 06:05] LABS: ADD MAN DIFF? NO
[2018-08-17 06:11] LABS: WHITE BLOOD COUNT 6.5 10^3/ul (4.8-10.8)
[2018-08-17 06:11] LABS: BASOPHILS % 0.3 % (0.0-2.0); EOSINOPHILS # 0.6 10^3/ul (0.0-0.5); EOSINOPHILS % 8.9 % (0.0-7.0); HEMATOCRIT 25.5 % (37.0-47.0); HEMOGLOBIN 8.1 g/dl (12.0-16.0); LYMPHOCYTES # 1.1 10^3/ul (0.8-2.9); LYMPHOCYTES % 16.6 % (15.0-51.0); MEAN CORPUSCULAR HEMOGLOBIN 30.7 pg (29.0-33.0); MEAN CORPUSCULAR HGB CONC 31.8 g/dl (32.0-37.0); MEAN CORPUSCULAR VOLUME 96.6 fl (82.0-101.0); MEAN PLATELET VOLUME 8.8 fl (7.4-10.4); MONOCYTE # 0.8 10^3/ul (0.3-0.9); MONOCYTES % 12.9 % (0.0-11.0); NEUTROPHIL # 3.9 10^3/ul (1.6-7.5); NEUTROPHILS % 59.3 % (39.0-77.0); NUCLEATED RED BLOOD CELLS% 0.3 /100WBC (0.0-0.0); PLATELET COUNT 356 10^3/UL (140-415); RED BLOOD COUNT 2.64 10^6/ul (4.20-5.40); RED CELL DISTRIBUTION WIDTH 17.2 % (11.5-14.5)
[2018-08-17 06:37] LABS: ALANINE AMINOTRANSFERASE 46 IU/L (13-69); ALBUMIN 2.8 g/dl (3.3-4.9); ALBUMIN/GLOBULIN RATIO 0.96; ALKALINE PHOSPHATASE 987 IU/L (42-121); ANION GAP 9 (8-16); ASPARTATE AMINO TRANSFERASE 87 IU/L (15-46); BILIRUBIN,INDIRECT 1.9 mg/dl (0-1.1); BILIRUBIN,TOTAL 1.9 mg/dl (0.2-1.3); BLOOD UREA NITROGEN 14 mg/dl (7-20); CALCIUM 8.2 mg/dl (8.4-10.2); CARBON DIOXIDE 28 mmol/L (21-31); CHLORIDE 109 mmol/L (97-110); CREATININE 0.77 mg/dl (0.44-1.00); GLUCOSE 85 mg/dl (70-220); SODIUM 142 mmol/L (135-144); TOTAL PROTEIN 5.7 g/dl (6.1-8.1)
[2018-08-17] MEDS: LORATADINE 10 MG TAB PO (08:05)
[2018-08-17] MEDS: MULTIVITAMINS THERAPEUTIC TAB PO (08:05)
[2018-08-17] MEDS: MAGNESIUM OXIDE 400 MG TAB PO ×2 (08:05→21:06)
[2018-08-17] MEDS: GABAPENTIN 300 MG CAP PO ×3 (08:05→21:06)
[2018-08-17] MEDS: SERTRALINE 50 MG TAB PO (08:05)
[2018-08-17] MEDS: oxyCODONE (CR) 10 MG TAB [oxyCONTIN] PO ×2 (08:06→21:07)
[2018-08-17] MEDS: DIPHENHYDRAMINE 25 MG CAP PO (12:34)
[2018-08-17] MEDS: HYDROCORTISONE 1% 28 GM CR TOP ×2 (17:00→21:43)
[2018-08-17] MEDS: SOD CHLORIDE 0.9% 250 ML IV* (17:24)
[2018-08-17 22:39] LABS: AHG CROSSMATCH 1 1
[2018-08-18] MEDS: OXYCODONE/ACETAMINOPHEN (5/325) TAB PO ×3 (02:08→16:09)
[2018-08-18 05:39] LABS: ADD MAN DIFF? NO
[2018-08-18 05:43] LABS: WHITE BLOOD COUNT 6.1 10^3/ul (4.8-10.8)
[2018-08-18 05:43] LABS: BASOPHILS % 0.3 % (0.0-2.0); EOSINOPHILS # 0.4 10^3/ul (0.0-0.5); EOSINOPHILS % 7.2 % (0.0-7.0); HEMATOCRIT 26.6 % (37.0-47.0); HEMOGLOBIN 8.4 g/dl (12.0-16.0); MEAN CORPUSCULAR HEMOGLOBIN 30.3 pg (29.0-33.0); MEAN CORPUSCULAR HGB CONC 31.6 g/dl (32.0-37.0); MEAN PLATELET VOLUME 8.8 fl (7.4-10.4); MONOCYTE # 0.7 10^3/ul (0.3-0.9); MONOCYTES % 11.7 % (0.0-11.0); NEUTROPHIL # 3.9 10^3/ul (1.6-7.5); NEUTROPHILS % 63.5 % (39.0-77.0); PLATELET COUNT 374 10^3/UL (140-415); RED BLOOD COUNT 2.77 10^6/ul (4.20-5.40); RED CELL DISTRIBUTION WIDTH 17.6 % (11.5-14.5)
[2018-08-18] MEDS: PANTOPRAZOLE 40 MG INJ IV ×2 (05:48→17:04)
[2018-08-18 06:21] LABS: ALANINE AMINOTRANSFERASE 46 IU/L (13-69); ALBUMIN 2.8 g/dl (3.3-4.9); ALBUMIN/GLOBULIN RATIO 0.93; ALKALINE PHOSPHATASE 1067 IU/L (42-121); ANION GAP 6 (8-16); ASPARTATE AMINO TRANSFERASE 86 IU/L (15-46); BILIRUBIN,INDIRECT 2.3 mg/dl (0-1.1); BILIRUBIN,TOTAL 2.7 mg/dl (0.2-1.3); BLOOD UREA NITROGEN 15 mg/dl (7-20); CALCIUM 8.3 mg/dl (8.4-10.2); CARBON DIOXIDE 31 mmol/L (21-31); CHLORIDE 110 mmol/L (97-110); CREATININE 0.82 mg/dl (0.44-1.00); GLUCOSE 93 mg/dl (70-220); POTASSIUM 4.3 mmol/L (3.5-5.1); SODIUM 143 mmol/L (135-144); TOTAL PROTEIN 5.8 g/dl (6.1-8.1)
[2018-08-18] MEDS: SERTRALINE 50 MG TAB PO (09:14)
[2018-08-18] MEDS: LORATADINE 10 MG TAB PO (09:14)
[2018-08-18] MEDS: MULTIVITAMINS THERAPEUTIC TAB PO (09:14)
[2018-08-18] MEDS: MAGNESIUM OXIDE 400 MG TAB PO (09:14)
[2018-08-18] MEDS: HYDROCORTISONE 1% 28 GM CR TOP (09:14)
[2018-08-18] MEDS: GABAPENTIN 300 MG CAP PO ×2 (09:15→12:58)
[2018-08-18] MEDS: oxyCODONE (CR) 10 MG TAB [oxyCONTIN] PO (09:15)
== END 2018-08-18 17:30 | DRG 814 ==
LOC: E/R 19:50 → PP2 22:16
PROC: 0DJ08ZZ Inspection of Upper Intestinal Tract, Via Natural or Artificial Opening Endoscopic (ICD-10-PCS; principal; 2018-08-01 12:00)
PROC: 0DBM8ZX Excision of Descending Colon, Via Natural or Artificial Opening Endoscopic, Diagnostic (ICD-10-PCS; 2018-08-01 12:00)
PROC: 0DBP8ZX Excision of Rectum, Via Natural or Artificial Opening Endoscopic, Diagnostic (ICD-10-PCS; 2018-08-01 12:00)
PROC: 30233N1 Transfusion of Nonautologous Red Blood Cells into Peripheral Vein, Percutaneous Approach (ICD-10-PCS; 2018-08-01 12:00)
PROC: 07DR3ZX Extraction of Iliac Bone Marrow, Percutaneous Approach, Diagnostic (ICD-10-PCS; 2018-08-01 12:00)
PROC: 0F798ZZ Dilation of Common Bile Duct, Via Natural or Artificial Opening Endoscopic (ICD-10-PCS; 2018-08-01 12:00)
DX: D73.5 Infarction of spleen (principal); I21.A1 Myocardial infarction type 2; D62 Acute posthemorrhagic anemia; I82.611 Acute embolism and thrombosis of superficial veins of right upper extremity; R17 Unspecified jaundice; I10 Essential (primary) hypertension; F32.9 Major depressive disorder, single episode, unspecified; Z72.0 Tobacco use; F03.90 Unspecified dementia, unspecified severity, without behavioral disturbance, psychotic disturbance, mood disturbance, and anxiety; K63.5 Polyp of colon; K62.1 Rectal polyp; M25.551 Pain in right hip; R21 Rash and other nonspecific skin eruption; K83.8 Other specified diseases of biliary tract; K20.9 Esophagitis, unspecified; R16.1 Splenomegaly, not elsewhere classified; R10.32 Left lower quadrant pain; R10.12 Left upper quadrant pain
CPT/HCPCS: 36415; 36430; 70450; 71045; 71275; 73510; 74181; 74330; 75635; 76700; 77012; 80048; 80053; 80202; 82105; 82247; 82248; 82270; 82728; 82962; 82977; 83010; 83540; 83615; 83690; 83735; 83970; 84080; 84100; 84466; 84484; 85014; 85018; 85025; 85045; 85610; 85730; 86038; 86255; 86301; 86376; 86644; 86706; 86803; 86850; 86870; 86880; 86885; 86900; 86901; 86920; 87081; 87340; 88305; 88311; 88313; 93005; 93306; 96374; 97110; 97116; 97161; 97164; 97530; 99285-25

== ENCOUNTER 2018-12-31 02:36 | Emergency (ER) | payer MEDICARE, OTHER ==
[2018-12-31] MEDS: HYDROCODONE/APAP (10/325) TAB PO (03:08)
[2018-12-31] MEDS: ONDANSETRON (ODT) 4 MG TAB ODT (03:08)
[2018-12-31] MEDS: KETOROLAC 30 MG INJ IM (08:10)
== END 2018-12-31 08:51 | disposition home or self-care (01) ==
LOC: E/R 02:36
DX: M25.551 Pain in right hip (principal); R40.2252 Coma scale, best verbal response, oriented, at arrival to emergency department; R40.2362 Coma scale, best motor response, obeys commands, at arrival to emergency department; R40.2142 Coma scale, eyes open, spontaneous, at arrival to emergency department; I10 Essential (primary) hypertension; F17.210 Nicotine dependence, cigarettes, uncomplicated; Z96.641 Presence of right artificial hip joint
CPT/HCPCS: 73550; 73551; 96372; 99284-25

== ENCOUNTER 2019-08-27 13:53 | Emergency (ER) | payer MEDICARE ==
[2019-08-27] MEDS: HYDROCODONE/APAP (10/325) TAB PO (16:44)
== END 2019-08-27 19:41 | disposition home or self-care (01) ==
LOC: FTE 13:53
DX: M25.551 Pain in right hip (principal); I10 Essential (primary) hypertension; Z87.891 Personal history of nicotine dependence
CPT/HCPCS: 72192; 99284-25